=== PATIENT | male | born 1955 | race Caucasian/White ===

== ENCOUNTER 2019-10-10 13:24 | Outpatient (CLI) | payer OTHER, SELFPAY ==
[2019-10-10 14:05] LABS: Add Urine Microscopic? YES; Appearance Urine Cloudy (Clear); Bacteria Urine Trace /hpf; Bilirubin Urine Negative (Negative); Blood Urine 1+ (Negative); Color Urine Yellow (Yellow); Glucose Urine UA Negative (Negative); Ketones Urine Negative (Negative); Leukocyte Esterase Ur 3+ LEU/UL (Negative); Nitrate Urine Negative (Negative); Protein Urine 2+ mg/dL (Negative); Specific Grav Ur 1.018 (1.001-1.035); Transitional Epi Cells Urine Rare /hpf (None Seen); Urobilinogen Urine Negative mg/dL (<2.0); WBC Urine >75 /hpf
== END 2019-10-10 13:25 | disposition home or self-care (01) ==
PROVIDERS: PCP Internal Medicine; Visit Provider Internal Medicine
DX: R82.90 Unspecified abnormal findings in urine (principal)
CPT/HCPCS: 81001; 87077; 87086; 87088; 87491; 87591

== ENCOUNTER 2020-05-17 09:15 | Outpatient (CLI) | payer OTHER, SELFPAY ==
--- NOTE | ~2020-05-17 | XR_ITS ---
EXAMINATION: XR shoulder RT min 2V DATE: 05/17/2020 09:52 INDICATION: Other specific arthropathies, not elsewhere classified. TECHNIQUE: 5 views of right shoulder were obtained. COMPARISON: None. FINDINGS: Bone alignment is normal. No fracture. There is mild osteoarthritis of glenohumeral joint c haracterized by tiny marginal osteophytes. There is moderate osteoarthritis of acromioclavicular join t. There are suture anchors in the glenoid. IMPRESSION: 1. Polyarticular osteoarthritis. Reviewed, dictated and finalized at location A. ER CLEANER
--- NOTE | ~2020-05-17 | XR_ITS ---
EXAMINATION: XR_CERV2-3V_CR EXAM DATE: 05/17/2020 09:52 INDICATION: Radiculopathy, side unspecified. Cervical spondylosis. TECHNIQUE: Frontal, lateral, open-mouth odontoid projections cervical spine. There is no prior stud y for comparison. FINDINGS: There is moderate disc disease C5-C7. Mild loss of the C4-5 disc height. The vertebral bod y and disc heights are otherwise well maintained. The vertebral bodies are aligned in the AP dimensio n. There is moderate midcervical arthropathy, evidence of some amount of neural foraminal stenosis at C5-6 and C6-7. Prevertebral soft tissue and pre-dens space are within normal limits. The odontoid pr ocess is intact. The lateral masses of C1 line up with C2. There is carotid calcification, arterial sclerotic disease, with unknown amount of additional atheros clerotic disease. Consider correlating with carotid ultrasound. IMPRESSION: 1. Moderate cervical spondylosis. 2. Carotid arteriosclerosis; consider follow-up ultrasound if not recently evaluated. Reviewed, dictated and finalized at location B. FIELD MANAGER IMPRESSION: 1. Moderate cervical spondylosis. 2. Carotid arteriosclerosis; consider follow-up ultrasound if not recently abby saloni.
--- NOTE | ~2020-05-17 | XR_ITS ---
EXAMINATION: XR shoulder LT min 2V DATE: 05/17/2020 09:52 INDICATION: Other specific arthropathies not elsewhere classified. TECHNIQUE: 4 views of left shoulder were obtained. COMPARISON: None. FINDINGS: Bone alignment is normal. No fracture. Glenohumeral joint is normal. There is mild acromioc lavicular joint osteoarthritis. IMPRESSION: 1. Mild left acromioclavicular joint osteoarthritis. Reviewed, dictated and finalized at location A. T CONTROL OPERATOR
[2020-05-17 09:34] LABS: Basophils Absolute Auto 0.1 K/mm3 (0.0-0.1); Basophils Percent Auto 1.1 % (0.2-1.2); Eosinophils Absolute Auto 0.3 K/mm3 (0-0.3); Hematocrit 41.4 % (42.0-52.0); Immature Granulocyte Absolute 0.06 K/mm3 (0.00-0.031); Immature Granulocyte Percent A 0.8 % (0-0.5); Lymphocytes Absolute Auto 2.02 K/mm3 (0.9-3.2); Lymphocytes Percent Auto 28.5 % (18.3-44.2); Mean Corpuscular HGB Conc 33.8 g/dl (32-36); Mean Corpuscular Hemoglobin 30.9 pg (26-34); Mean Corpuscular Volume 91.4 fl (80-100); Mean Platelet Volume 9.8 fl (7.4-10.4); Monocytes Absolute Auto 0.6 K/mm3 (0.1-0.6); Monocytes Percent Auto 7.9 % (2.6-8.5); Neutrophils Absolute Auto 4.1 K/mm3 (1.3-6.7); Neutrophils Percent Auto 57.7 % (45.5-73.1); Platelet Count Result 237 k/mm3 (150-375); Red Blood Count 4.53 M/mm3 (4.6-6.20); Red Cell Distribution Width 12.7 % (11.5-14.5); White Blood Count 7.1 K/mm3 (4.5-10.0)
[2020-05-17 09:46] LABS: Alanine Aminotransferase 41 U/L (4-50); Albumin Level 4.1 g/dL (3.5-5.1); Alkaline Phosphatase 56 U/L (38-126); Anion Gap 5 mmol/L (8-16); Aspartate Amino Transferase 34 U/L (17-59); Bilirubin,Total 0.4 mg/dL (0.2-1.3); Blood Urea Nitrogen 22 mg/dL (9-20); Calcium 8.9 mg/dL (8.4-10.2); Carbon Dioxide 29 mmol/L (22-30); Chloride 105 mmol/L (98-107); Cholesterol 206 mg/dL (0-200); Estimated Glomerular Filt Rate > 60; Glucose 107 mg/dL (75-110); HDL Direct 37 mg/dL; Sodium 139 mmol/L (137-145); Triglycerides 78 mg/dL (<150)
[2020-05-17 09:57] LABS: LDL Cholesterol Direct 144 mg/dL
[2020-05-17 10:17] LABS: Prostate Specific Antigen 0.9 ng/mL (< OR = 4.0)
[2020-05-17 10:34] LABS: Vitamin D 25 Hydroxy 32.1 ng/mL
== END 2020-05-17 09:16 | disposition home or self-care (01) ==
LOC: ANHLAB 09:18
PROVIDERS: PCP Internal Medicine; Visit Provider Internal Medicine
DX: E55.9 Vitamin D deficiency, unspecified (principal); Z12.5 Encounter for screening for malignant neoplasm of prostate; E78.2 Mixed hyperlipidemia; M12.811 Other specific arthropathies, not elsewhere classified, right shoulder; M12.812 Other specific arthropathies, not elsewhere classified, left shoulder; M25.50 Pain in unspecified joint; M47.22 Other spondylosis with radiculopathy, cervical region; M19.011 Primary osteoarthritis, right shoulder; M19.012 Primary osteoarthritis, left shoulder
CPT/HCPCS: 36415; 72040; 73030; 80053; 80061; 82306; 84153; 84443; 85025; G0103

== ENCOUNTER 2020-05-28 10:19 | Outpatient (CLI) | payer OTHER, SELFPAY ==
--- NOTE | ~2020-05-28 | US_ITS ---
EXAMINATION: US carotid duplex BI DATE: 05/28/2020 11:04 INDICATION: Carotid artery atherosclerosis and stenosis. TECHNIQUE: Grayscale, color Doppler, and pulsed Doppler images of the cervical carotid arteries were obtained. The degree of vessel stenosis is placed in one of the following categories: normal, <50%, 5 0-69%, >=70% but less than near-occlusion, near-occlusion, or total occlusion. Note that percent sten osis relative to normal distal artery lumen diameter is indirectly measured from velocity measurement s as described by Ranjith, et al. Radiology 2003; 229:340-346. COMPARISON: 05/29/2004 FINDINGS: RIGHT: The right common carotid artery (CCA) peak systolic velocity (PSV) is 87 cm/s. The right internal car otid artery (ICA) PSV is 74 cm/s. The right ICA end-diastolic velocity (EDV) is 27 cm/s. The right IC A/CCA PSV ratio is 0.9. Grayscale and color Doppler images yield an estimate of <50% diameter reducti on from plaque in the ICA. The external carotid artery (ECA) PSV is 59 cm/s. There is antegrade flow in the right vertebral artery. LEFT: The left CCA PSV is 95 cm/s. The left ICA PSV is 68 cm/s. The left ICA EDV is 27 cm/s. The left ICA/C CA PSV ratio is 0.7. Grayscale and color Doppler images yield an estimate of <50% diameter reduction from plaque in the ICA. The ECA PSV is 73 cm/s. There is antegrade flow in the left vertebral artery. IMPRESSION: 1. <50% stenosis in the right internal carotid artery. 2. <50% stenosis in the left internal carotid artery. Reviewed, dictated and finalized at location A.
== END 2020-05-28 10:20 | disposition home or self-care (01) ==
PROVIDERS: PCP Internal Medicine; Visit Provider Internal Medicine
DX: I65.23 Occlusion and stenosis of bilateral carotid arteries (principal)
CPT/HCPCS: 93880

== ENCOUNTER 2020-06-27 16:01 | Outpatient (CLI) | payer OTHER, SELFPAY ==
--- NOTE | ~2020-06-27 | MR_ITS ---
EXAMINATION: MR shoulder LT wo/w con DATE: 06/28/2020 10:19 INDICATION: Right shoulder arthropathy TECHNIQUE/FINDINGS/IMPRESSION: Magnetic resonance imaging (MRI) of the right shoulder was attempted. At the patient's request the study was terminated after obtaining only the permastone applicator localizer images. No contrast was administered. The obtained permastone applicator images appear grossly unremarkable but are insufficien t for diagnostic assessment. Reviewed, dictated and finalized at location A.
[2020-06-27 16:27] LABS: Estimated Glomerular Filt Rate > 60
== END 2020-06-27 16:02 | disposition home or self-care (01) ==
PROVIDERS: PCP Internal Medicine; Visit Provider Internal Medicine
DX: M12.811 Other specific arthropathies, not elsewhere classified, right shoulder (principal)
CPT/HCPCS: 73223

== ENCOUNTER 2020-07-07 12:55 | Outpatient (CLI) | payer OTHER, SELFPAY ==
--- NOTE | ~2020-07-07 | MR_ITS ---
EXAMINATION: MR shoulder RT wo/w con DATE: 07/07/2020 14:44 INDICATION: Right rotator cuff arthropathy presenting with right shoulder pain TECHNIQUE: Magnetic resonance imaging (MRI) of the right shoulder was performed without and with 19 m L Multihance intravenous contrast. Sequences included axial PD-weighted FS FSE, axial T1-weighted FSE , axial T1-weighted FS FSE, coronal oblique PD-weighted FS FSE, coronal oblique T2-weighted FS FSE, s agittal T2-weighted FS FSE, sagittal T1-weighted SE and postcontrast axial and coronal T1-weighted FS FSE. COMPARISON: Right shoulder radiographs dated 05/17/2010 FINDINGS: Coracoacromial arch: The acromion undersurface is curved in morphology (type II). The coracoacromial ligament is normal. M oderate acromioclavicular osteoarthritis. Rotator cuff: Mild to supraspinatus and infraspinatus tendinopathy without discrete tear. The teres minor tendon is normal. Moderate subscapularis tendinopathy without discrete tear. There foci of susceptibility radha fact along the tendon near the level of the glenoid likely related to prior surgery. There appears to be mild fatty atrophy of the subscapularis muscle belly relative to the remainder of the rotator cuf f muscles. Biceps tendon, glenoid labrum and glenohumeral cartilage: The long head of the biceps tendon is torn and retracted below the level of the intertubercular groov e. Magnetic field artifact associated with a couple metallic suture anchors along the anteroinferior rim of the glenoid likely for prior labral repair. There is irregular degenerative tearing of the sup erior to posterior superior glenoid labrum. Region of deep chondral ulceration without degenerative s ubchondral changes at the superomedial aspect of the humeral head. Partial-thickness cartilage loss w ith smooth chondral surface along the inferomedial aspect of the humeral head and at the glenoid. Ass essment of the cartilage at the anteroinferior glenoid is however limited by the magnetic field artif act from the suture anchors. Fluid: Minimal glenohumeral joint effusion with mild synovitis and mild increased fluid in the deep subscapu lar recess additional mild synovitis at the axillary recess. No loose osteochondral bodies. Small iris unt of fluid in the subacromial/subdeltoid bursa consistent with mild bursitis. Bones: Normal marrow signal with no fracture or pathologic marrow replacing process. Mild cystic change thelma g the undersurface of the acromion. IMPRESSION: 1. Moderate subscapularis and mild to moderate supraspinatus and infraspinatus tendinopathy without discrete tear. Mild fatty atrophy of the subscapularis muscle with foci of susceptibility artifact al ivett the subscapularis tendon centered approximately 4 cm from the lesser tuberosity footplate related to prior shoulder surgery. Correlate with details of the prior surgery. 2. Mild glenohumeral osteoarthritis with moderate grade chondromalacia with deep chondral ulceration at the superomedial humeral head. 3. Degenerative tearing at the superior to posterior superior glenoid labrum with suture anchors thelma g the anteroinferior glenoid suggesting prior labral repair. 4. Complete tear and distal retraction of the long head biceps tendon. 5. Mild subacromial/subdeltoid bursitis. 6. Moderate acromioclavicular osteoarthritis. Reviewed, dictated and finalized at location A. IMPRESSION: 1. Moderate subscapularis and mild to moderate supraspinatus and infraspinatus tendinopathy without discrete tear. Mild fatty atrophy of the subscapularis mu scle with foci of susceptibility artifact along the subscapularis tendon center ed approximately 4 cm from the lesser tuberosity footplate related to prior pieter ulder surgery. Correlate with details of th
--- NOTE | ~2020-07-07 | MR_ITS ---
EXAMINATION: MR shoulder LT wo/w con DATE: 07/07/2020 14:44 INDICATION: Left rotator cuff arthropathy presenting with left shoulder pain. TECHNIQUE: Magnetic resonance imaging (MRI) of the left shoulder was performed without and with 19 mL Multihance intravenous contrast. Sequences included axial PD-weighted FS FSE, axial T1-weighted FSE, axial T1-weighted FS FSE, coronal oblique PD-weighted FS FSE, coronal oblique T2-weighted FS FSE, sa gittal T2-weighted FS FSE, sagittal T1-weighted SE and postcontrast axial and coronal T1-weighted FS FSE. COMPARISON: Left shoulder radiographs dated 05/17/2020 FINDINGS: Coracoacromial arch: The acromion undersurface is curved in morphology (type II). The coracoacromial ligament is normal. M ild acromioclavicular osteoarthritis. Rotator cuff: Moderate subscapularis tendinopathy with small partial-thickness tear involving the superolateral asp ect of the lesser tuberosity footplate allowing partial subluxation of the long head biceps tendon ac ross the superior medial rim of the intertubercular groove. Moderate supraspinatus tendinopathy with very small intrasubstance tear extending 2 mm AP and involving at least half of the tendon thickness but without definitive involvement of the articular bursal surfaces at the superior facet footplate o f the supraspinatus tendon. Mild infraspinatus tendinopathy without discrete tear. The teres minor te ndon is normal. Normal rotator cuff muscle bulk and signal. Biceps tendon, glenoid labrum and glenohumeral cartilage: Long head biceps tendon is normal aside from the partial subluxation of the long head biceps tendon a cross the superior medial rim of the lesser intertubercular groove. Likely Manuela complex with absent anterosuperior glenoid labrum and thickened cordlike middle glenohumeral ligament. There is also pro minent degenerative tearing of the anteroinferior labrum which appears thickened with amorphous incre ased intrasubstance signal extending from the 3:00-6:00 position. Additional more well-defined tear l inear tear extending into the substance of the superior to posterior superior glenoid labrum. There i s partial thickness cartilage loss without degenerative subchondral changes at the posterior superome dial aspect of the humeral head. Glenoid cartilage appears relatively preserved. Fluid: Minimal glenohumeral joint effusion surrounding a few loose bodies in the deep subscapular recess. Pr oportional small amount of fluid within the long head biceps tendon sheath. Small amount of fluid and enhancing synovitis in the subacromial/subdeltoid bursa consistent with mild bursitis. Bones: Normal marrow signal with no fracture or pathologic marrow replacing process. Minimal cystic change a t the greater tuberosity. IMPRESSION: 1. Moderate subscapularis with small partial tear at the superolateral lesser tuberosity footplate. 2. Moderate supraspinatus tendinopathy with very small moderate severity partial-thickness intrasubst ance tear at the superior facet footplate. 3. Tear at the superior to posterior superior glenoid labrum and less well-defined degenerative teari ng of the thickened macerated appearing anteroinferior to inferior labrum. 4. Mild glenohumeral and acromioclavicular osteoarthritis. 5. Mild subacromial/subdeltoid bursitis. Reviewed, dictated and finalized at location A. IMPRESSION: 1. Moderate subscapularis with small partial tear at the superolateral lesser t uberosity footplate. 2. Moderate supraspinatus tendinopathy with very small moderate severity partia l-thickness intrasubstance tear at the superior facet footplate. 3. Tear at the superior to posterior superior glenoid labrum and less well-defi suzanne degenerative tearing of the thickened macerated a
== END 2020-07-07 12:56 | disposition home or self-care (01) ==
PROVIDERS: PCP Internal Medicine; Visit Provider Internal Medicine
DX: M19.011 Primary osteoarthritis, right shoulder (principal); S43.431A Superior glenoid labrum lesion of right shoulder, initial encounter; S46.111A Strain of muscle, fascia and tendon of long head of biceps, right arm, initial encounter; M75.51 Bursitis of right shoulder; S43.432A Superior glenoid labrum lesion of left shoulder, initial encounter; M75.52 Bursitis of left shoulder; M75.102 Unspecified rotator cuff tear or rupture of left shoulder, not specified as traumatic; M19.012 Primary osteoarthritis, left shoulder
CPT/HCPCS: 73223; A9577

== ENCOUNTER → 2020-07-10 01:41 | Outpatient (CLI) | payer OTHER, SELFPAY ==
[2020-07-10 19:23] LABS: SARS-CoV-2 RNA PCR Negative
== END ==
PROVIDERS: PCP Internal Medicine; Visit Provider Internal Medicine Gastroenterology
DX: Z01.812 Encounter for preprocedural laboratory examination (principal); Z20.822 Contact with and (suspected) exposure to COVID-19
CPT/HCPCS: C9803; U0003; U0005

== ENCOUNTER 2020-07-13 01:52 | Day surgery (SDC) | payer OTHER, SELFPAY ==
[2020-07-04 13:41] VITALS: BMI 32.1
[2020-07-13 07:19] VITALS: BP 136/81; PULSE 62; RESP 16; TEMP 36.3; O2SAT 97; BMI 32.5
[2020-07-13] MEDS: LACTATED RINGERS 1,000 ML 150 ML IV CONT (07:34)
--- NOTE | 2020-07-13 08:03 | WPDANESEPPF ---
Anes - Initial Pre Proc Eval Procedure: Operation Date: 07/13/20 08:30 Proposed Procedures p Screening Colonoscopy - Fabio Benavidez MD Date/Time: 07/13/20 08:03 Surgeon: Fabio Benavidez MD Pre Op Diagnosis: neoplasm screening Patient Data Age: 64 Gender: M Height: 5 ft 8 in Weight: 97 kg Last Vital Signs Temp 36.3 C L 07/13/20 07:19 Pulse 62 07/13/20 07:19 Resp 16 07/13/20 07:19 BP 136/81 07/13/20 07:19 Pulse Ox 97 07/13/20 07:19 Allergies Allergy/AdvReac Type Severity Reaction Status Date / Time morphine Allergy Intermediate Itching Verified 07/13/20 07:18 Penicillins Allergy Intermediate Rash Verified 07/13/20 07:18 Home Medications Medication Instructions Recorded Confirmed Type rosuvastatin 5 mg tablet 5 mg PO DAILY #30 tablet 05/21/20 07/13/20 Rx hydrocodone-acetaminophen 1 tablet PO Q6H PRN 07/04/20 07/13/20 History Patient hx anesthesia problems: none Family hx anesthesia problems: none PMFSH Past Medical History Medical History Pure hypercholesterolemia Family History Family History Father Patient's father is in good health Sibling Patient's brother is in good health Mother Family history of diabetes mellitus in first degree relative Diabetes mellitus Asthma Family history of pancreatic cancer Grandparent Carcinoma of colon Social History Social History Smoking status: Never smoker Alcohol intake: current Alcohol use details: OCC. 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 Questions were solicited and answers provided to the satisfaction of the patient/family/POA.
--- NOTE | 2020-07-13 08:11 | PM.HPGS ---
History of Present Illness History of Present Illness Consent: Risks, benefits, and alternatives have been discussed and questions answered. Patient agrees to proceed with procedure. Chief complaint: neoplasm screening Narrative: Jaron Nicholson is a 64 year old male with screening colonoscopy, last one about 10 years Review of Systems Constitutional: Constitutional: Denies headache(s) and Denies weakness Eyes: Eyes: Denies blurry vision ENT: Reports Normal hearing present, Denies headache(s) and Denies neck pain Cardiovascular: Cardiovascular: Denies chest pain and Denies dyspnea Respiratory: Respiratory: Denies dyspnea Gastrointestinal: Gastrointestinal: Reports no additional gastrointestinal complaints Genitourinary: Genitourinary: Denies dysuria Musculoskeletal: Musculoskeletal: Denies neck pain Integumentary/Breasts: Skin/Breast: Denies dry skin Neurologic: Reports Normal hearing present, Denies headache(s) and Denies weakness Psychiatric: Psychiatric: Denies anxiety Endocrine: Endocrine: Denies change in body appearance Hematologic/Lymphatic: Hematologic/Lymphatic: Denies easy bleeding Allergic/Immunologic: Allergic/Immunologic: Denies urticaria PMFSH Past Medical History Medical History Pure hypercholesterolemia Family History Family History Father Patient's father is in good health Sibling Patient's brother is in good health Mother Family history of diabetes mellitus in first degree relative Diabetes mellitus Asthma Family history of pancreatic cancer Grandparent Carcinoma of colon Social History Social History Smoking status: Never smoker Alcohol intake: current Alcohol use details: OCC. 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 Gender identity (if verbalized by the patient): Male Spiritual care concerns: No Meds Home Medications and Allergies Home Medications Medication Instructions Recorded Confirmed Type rosuvastatin 5 mg tablet 5 mg PO DAILY #30 tablet 05/21/20 07/13/20 Rx hydrocodone-acetaminophen 1 tablet PO Q6H PRN 07/04/20 07/13/20 History Allergies Allergy/AdvReac Type Severity Reaction Status Date / Time morphine Allergy Intermediate Itching Verified 07/13/20 07:18 Penicillins Allergy Intermediate Rash Verified 07/13/20 07:18 Vital Signs Vital Signs - 24 hr 07/13/20 07:19 Temperature 97.4 F L Pulse Rate 62 Respiratory Rate 16 Blood Pressure 136/81 Pulse Oximetry 97 Exam Const: General: comfortable and no acute distress HENMT: General nose exam: Normal nares present Eyes: General: appearance normal, both eyes and all related structures Neck: Neck: no JVD Resp: Auscultation: clear to auscultation bilaterally Cardio: Rate: regular rate Rhythm: regular rhythm GI: Inspection: non-distended GI Palp: Yes Soft to palpation Skin: General skin exam: normal color Neuro: General: gait normal Speech: normal speech Extrem: General: normal to inspection Psych: Mental Status: mental status grossly normal Assessment and Plan Assessment and plan (1) Encounter for screening colonoscopy: Code(s): Z12.11 - Encounter for screening for malignant neoplasm of colon Status: Acute Assessment and Plan: colonoscopy
[2020-07-13 08:33] VITALS: BP 123/89; PULSE 72; RESP 22; O2SAT 92
[2020-07-13 08:43] VITALS: BP 135/83; PULSE 65; RESP 19; O2SAT 96
[2020-07-13 08:53] VITALS: BP 136/89; PULSE 66; RESP 16; O2SAT 100
== END 2020-07-13 09:00 | disposition home or self-care (01) ==
PROVIDERS: PCP Internal Medicine; Visit Provider Internal Medicine Gastroenterology
PROC: 0DJD8ZZ Inspection of Lower Intestinal Tract, Via Natural or Artificial Opening Endoscopic (ICD-10-PCS; CPT 45378; principal; 2020-07-13 08:30)
DX: Z12.11 Encounter for screening for malignant neoplasm of colon (principal); D12.5 Benign neoplasm of sigmoid colon; K63.5 Polyp of colon; K64.8 Other hemorrhoids; E78.00 Pure hypercholesterolemia, unspecified
CPT/HCPCS: 45385; 88305; J2704; J7120

== ENCOUNTER 2020-11-26 06:52 | Outpatient (CLI) | payer MEDICARE, OTHER, SELFPAY ==
[2020-11-26 07:47] LABS: Alanine Aminotransferase 36 U/L (4-50); Albumin Level 4.2 g/dL (3.5-5.1); Alkaline Phosphatase 53 U/L (38-126); Anion Gap 6 mmol/L (8-16); Aspartate Amino Transferase 29 U/L (17-59); Bilirubin,Total 0.4 mg/dL (0.2-1.3); Blood Urea Nitrogen 18 mg/dL (9-20); Calcium 9.1 mg/dL (8.4-10.2); Carbon Dioxide 30 mmol/L (22-30); Chloride 104 mmol/L (98-107); Cholesterol 222 mg/dL (0-200); Estimated Glomerular Filt Rate > 60; Glucose 109 mg/dL (65-110); HDL Direct 37 mg/dL; Potassium 3.9 mmol/L (3.4-5.0); Sodium 140 mmol/L (137-145); Triglycerides 121 mg/dL (<150)
[2020-11-26 07:58] LABS: LDL Cholesterol Direct 143 mg/dL
== END 2020-11-26 06:53 | disposition home or self-care (01) ==
LOC: ANHLAB 06:55
PROVIDERS: PCP Internal Medicine; Visit Provider Internal Medicine
DX: E78.2 Mixed hyperlipidemia (principal)
CPT/HCPCS: 36415; 80053; 80061

== ENCOUNTER 2021-06-10 07:03 | Outpatient (CLI) | payer MEDICARE, OTHER, SELFPAY ==
[2021-06-10 07:45] LABS: Basophils Absolute Auto 0.1 K/mm3 (0.0-0.1); Basophils Percent Auto 1.1 % (0.2-1.2); Eosinophils Absolute Auto 0.5 K/mm3 (0-0.3); Hematocrit 42.8 % (42.0-52.0); Hemoglobin 14.4 g/dL (14.0-18.0); Immature Granulocyte Absolute 0.04 K/mm3 (0.00-0.031); Immature Granulocyte Percent A 0.6 % (0-0.5); Lymphocytes Absolute Auto 2.05 K/mm3 (0.9-3.2); Lymphocytes Percent Auto 29.1 % (18.3-44.2); Mean Corpuscular HGB Conc 33.6 g/dl (32-36); Mean Corpuscular Hemoglobin 30.8 pg (26-34); Mean Corpuscular Volume 91.6 fl (80-100); Mean Platelet Volume 9.8 fl (7.4-10.4); Monocytes Absolute Auto 0.6 K/mm3 (0.1-0.6); Monocytes Percent Auto 8.2 % (2.6-8.5); Neutrophils Absolute Auto 3.8 K/mm3 (1.3-6.7); Platelet Count Result 239 k/mm3 (150-375); Red Blood Count 4.67 M/mm3 (4.6-6.20); Red Cell Distribution Width 12.9 % (11.5-14.5)
[2021-06-10 07:46] LABS: Alanine Aminotransferase 40 U/L (4-50); Albumin Level 4.1 g/dL (3.5-5.1); Alkaline Phosphatase 55 U/L (38-126); Anion Gap 7 mmol/L (8-16); Aspartate Amino Transferase 30 U/L (17-59); Bilirubin,Total 0.4 mg/dL (0.2-1.3); Blood Urea Nitrogen 32 mg/dL (9-20); Calcium 8.5 mg/dL (8.4-10.2); Carbon Dioxide 27 mmol/L (22-30); Chloride 106 mmol/L (98-107); Cholesterol 117 mg/dL (0-200); Estimated Glomerular Filt Rate > 60; Glucose 107 mg/dL (65-110); HDL Direct 35 mg/dL; Potassium 3.8 mmol/L (3.4-5.0); Sodium 140 mmol/L (137-145); Triglycerides 67 mg/dL (<150)
[2021-06-10 07:57] LABS: LDL Cholesterol Direct 60 mg/dL
[2021-06-10 08:15] LABS: Prostate Specific Antigen 0.8 ng/mL (< OR = 4.0)
== END 2021-06-10 07:04 | disposition home or self-care (01) ==
PROVIDERS: PCP Internal Medicine; Visit Provider Internal Medicine
DX: E55.9 Vitamin D deficiency, unspecified (principal); N40.1 Benign prostatic hyperplasia with lower urinary tract symptoms; R39.11 Hesitancy of micturition; F41.9 Anxiety disorder, unspecified; E78.00 Pure hypercholesterolemia, unspecified; N52.9 Male erectile dysfunction, unspecified; E78.2 Mixed hyperlipidemia; Z12.5 Encounter for screening for malignant neoplasm of prostate
CPT/HCPCS: 36415; 80053; 80061; 82306; 84153; 84443; 85025; G0103

== ENCOUNTER 2021-06-17 10:04 | Outpatient (CLI) | payer MEDICARE, OTHER, SELFPAY ==
--- NOTE | ~2021-06-17 | XR_ITS ---
EXAM: XR knee RT 3V HISTORY: stepped in hole , right knee pain COMPARISON: None available FINDINGS: Normal mineralization. No fracture or dislocation. No lytic or blastic lesion. Mild medial joint space narrowing and tricompartmental osteophytosis. No erosion or periosteal change. Soft tiss ues within normal limits. IMPRESSION: No acute osseous finding in the right knee. Reviewed, dictated and finalized at location K.
== END 2021-06-17 10:05 | disposition home or self-care (01) ==
PROVIDERS: PCP Internal Medicine; Visit Provider Internal Medicine
DX: S86.911A Strain of unspecified muscle(s) and tendon(s) at lower leg level, right leg, initial encounter (principal); X58.XXXA Exposure to other specified factors, initial encounter
CPT/HCPCS: 73562

== ENCOUNTER 2021-08-08 16:51 | Outpatient (CLI) | payer MEDICARE, OTHER, SELFPAY ==
--- NOTE | ~2021-08-08 | MR_ITS ---
EXAMINATION: MR knee RT wo con DATE: 08/08/2021 17:21 INDICATION: Right knee pain TECHNIQUE: Magnetic resonance imaging (MRI) of the right knee was performed without intravenous contr ast. Sequences included coronal PD-weighted FSE, coronal PD-weighted FS FSE, sagittal T2-weighted FS E, sagittal PD-weighted FS FSE and axial PD weighted fat saturated FSE. COMPARISON: None. FINDINGS: Medial compartment: Medial meniscal tear which begins as a longitudinal horizontal tear extending to the inferior articul ar surface near the free edge of the posterior horn and with more vertically oriented tear extending to the inferior articular surface and the peripheral third of the medial meniscal body. Chondral ulce ration with partial thickness cartilage loss and chondral surface irregularity along the anterior to central weightbearing medial femoral condyle. Additional partial thickness chondral ulceration at the anteromedial aspect of the medial tibial plateau with minimal underlying subarticular edema-like sig nal change. Lateral compartment: Lateral meniscus is normal. Articular cartilage is normal. Patellofemoral compartment: Partial-thickness chondral ulceration at the central aspect of the patellar apical ridge and immediat umer adjacent lateral aspect of the medial patellar facet. Chondral ulceration and deep fissuring at t he trochlear groove and medial trochlea. There is mild underlying cortical irregularity and minimal e andrez-like signal change at the inferior aspect of the medial trochlea. Less severe shallow chondral u lceration at the medial side of the lateral trochlea. Ligaments and tendons: Anterior and posterior cruciate ligaments are normal. Wall thickening of the proximal medial collater al ligament with minimal surrounding edema which most likely reactive related to the medial meniscal tear with chronic scarring of the proximal medial collateral ligament. Could however be related to a more acute mild to moderate grade sprain. The fibular collateral ligament complex is normal. The coates llar tendon is normal. Mild distal quadriceps tendinopathy without discrete tear. The visualized medi al and lateral hamstring tendons as well as the iliotibial band are normal. Fluid: Physiologic amount of fluid in the joint space. No loose osteochondral bodies identified. Small Smith 's cyst. Osseous/other: Mild cystic change near the posterior root of the medial meniscus. Marrow signal is otherwise normal. No fracture or pathologic marrow replacing process. IMPRESSION: 1. Tear of the body and posterior horn of the medial meniscus. 2. Mild medial and patellofemoral osteoarthritis with moderate grade chondromalacia as detailed above . 3. Age-indeterminate but more likely chronic low to moderate grade sprain of the medial collateral li gament. 4. Small Smith's cyst. Reviewed, dictated and finalized at location B. IMPRESSION: 1. Tear of the body and posterior horn of the medial meniscus. 2. Mild medial and patellofemoral osteoarthritis with moderate grade chondromal acia as detailed above. 3. Age-indeterminate but more likely chronic low to moderate grade sprain of th e medial collateral ligament. 4. Small Smith's cyst.
== END 2021-08-08 16:52 | disposition home or self-care (01) ==
PROVIDERS: PCP Internal Medicine; Visit Provider Nurse Practitioner Family
DX: M71.21 Synovial cyst of popliteal space [Baker], right knee (principal); M17.11 Unilateral primary osteoarthritis, right knee
CPT/HCPCS: 73721

== ENCOUNTER 2021-08-21 07:35 | Outpatient (CLI) | payer MEDICARE, OTHER, SELFPAY ==
--- NOTE | 2021-08-21 07:42 | ECG_ITS ---
Measurements Intervals [place] Rate: 59 P: 47 TX: 205 QRS: 41 QRSD: 109 T: 60 QT: 381 QTc: 380 Interpretive Statements SINUS BRADYCARDIA OTHERWISE NORMAL ECG NO PREVIOUS ECG AVAILABLE FOR COMPARISON Electronically Signed On 08-21-2021 10:31:57 CDT by Bandar Lopez M.D.
== END 2021-08-21 07:36 | disposition home or self-care (01) ==
LOC: ANHSURGERY 07:41
PROVIDERS: PCP Internal Medicine; Visit Provider Orthopaedic Surgery
DX: Z01.818 Encounter for other preprocedural examination (principal); S83.249A Other tear of medial meniscus, current injury, unspecified knee, initial encounter
CPT/HCPCS: 93005

== ENCOUNTER 2021-08-30 01:44 | Day surgery (SDC) | payer MEDICARE, OTHER, SELFPAY ==
[2021-08-19 09:41] VITALS: BMI 33.5
--- NOTE | 2021-08-19 09:54 | PC.NURSE ---
Report to the Outpatient Waiting Room, entrance under the green pavilion located off [facility], at time __7:00AM on date _08/30/21 . OR Time: _9:00AM . - You and your visitor will be asked a series of questions to screen for COVID 19 for your protection. - Only one visitor is allowed at this time. - The patient visitor is requested to leave or wait in car when not with patient. - A mask is required within the hospital. Patients may have clear liquids (water, carbonated beverages, clear teas, apple juice) until 3 hours prior to surgery with a maximum of 20 ounces. - No food from midnight until time of surgery - Infants may have breast milk until 4 hours before surgery, formula 6 hours prior to surgery. - Children will be allowed to drink immediately following surgery. If applicable, please bring a bottle or sippy cup to assist with drinking. Juice, water, soda, and popsicles are readily available. For infants on formula, please bring formula the day of surgery. Pacifiers are allowed. Take the following medications with a SIP of water the morning of surgery: __HYDROCODONE NEEDED FOR PAIN Medications to discontinue per physician ___NONE Date to take last dose Please no make-up, nail senegalese, hairspray, perfume, deodorant, or body powder the day of surgery. No jewelry (including any body piercings) or valuables the day of surgery, leave them at home. Please take a shower or bath the night before, or the morning of, surgery with an antibacterial soap. Wear comfortable, loose fitting clothing. Children are encouraged to wear pajamas. - Jewelry must be removed prior to entering the operating room. Rings and piercings that are not removed may be cut off. - The hospital will not accept responsibility for valuables. - Please leave all valuables, including medications, at home the day of surgery. If you are going home after surgery, a licensed steam train driver must drive you home. - NO public transportation without another adult. - We recommend that an adult stay with you for 24 hours following discharge. - We also recommend that you do not drive, make important decision, drink alcoholic beverages, or take any drugs that were not prescribed by your health care provider for at least 24 hours after your discharge time. For Pediatric surgeries, we recommend two adults accompany the child home (only one inside the building at this time). Follow any additional instructions given to you from your surgeon. If you or anyone in your household have experienced Covid symptoms in the past week, please notify your surgeon or the nurse liaison at the phone number below for possible testing. Telephone instructions given to ___PATIENT and asked if any additional questions and then verbalized understanding. Patient advised to call surgeon office or pre surgery nurse liaison [phone] if any additional questions.
[2021-08-30] VITALS (9 sets, daily range): BP systolic 120–158; BP diastolic 72–86; PULSE 52–80; RESP 14–20; TEMP 36.3–36.9; O2SAT 95–100
[2021-08-30] MEDS: CELECOXIB 200 MG CAPSULE PO (06:40)
[2021-08-30] MEDS: ACETAMINOPHEN 500 MG TABLET 1000 MG PO (06:40)
[2021-08-30] MEDS: LACTATED RINGERS 1,000 ML 30 ML IV CONT (06:50)
--- NOTE | 2021-08-30 07:06 | WPDANESEPPF ---
Anes - Initial Pre Proc Eval Procedure: Operation Date: 08/30/21 07:30 Proposed Procedures p Right Knee Arthroscopy - You Gustafson MD Date/Time: 08/30/21 07:06 Surgeon: You Gustafson MD Pre Op Diagnosis: Rt Knee Medial Meniscus Tear, Patient Data Age: 65 Gender: M Height: 1.73 m Weight: 100.2 kg Last Vital Signs Temp 36.9 C 08/30/21 06:45 Pulse 58 L 08/30/21 06:45 Resp 14 08/30/21 06:45 BP 158/85 H 08/30/21 06:45 Pulse Ox 97 08/30/21 06:45 O2 Del Method Room Air 08/30/21 06:45 Allergies Allergy/AdvReac Type Severity Reaction Status Date / Time morphine Allergy Intermediate Itching/ALEXA Verified 08/22/21 09:47 H Penicillins Allergy Intermediate RASH/ITCHIN Verified 08/22/21 09:47 G Home Medications Medication Instructions Recorded Confirmed Type sildenafil 100 mg tablet (Viagra) 100 mg PO DAILY PRN sexual 11/29/20 08/22/21 Rx activity #30 tabs rosuvastatin 20 mg tablet 20 mg PO DAILY #90 tabs 06/17/21 08/22/21 Rx hydrocodone 5 mg-acetaminophen 325 1 tablet PO DAILY PRN Pain 08/19/21 08/22/21 History mg tablet ibuprofen 800 mg tablet 800 mg PO TID PRN Pain 08/19/21 08/22/21 History Patient hx anesthesia problems: none Family hx anesthesia problems: none Results Review: All pre-operative results and documents have been reviewed as part of the pre-operative evaluation. [facility] Past Medical History Medical History Medial meniscus tear Pure hypercholesterolemia Right knee pain Surgical History Surgical History Status post total left knee replacement Family History Family History Father Patient's father is in good health Sibling Patient's brother is in good health Mother Family history of diabetes mellitus in first degree relative Diabetes mellitus Asthma Family history of pancreatic cancer Grandparent Carcinoma of colon Social History Social History Smoking status: Never smoker Second hand tobacco smoke exposure: Yes Alcohol intake: current Drinks per week: 6 Alcohol use details: OCC. 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 Informed Consent: The patient's anesthetic plan and its attendant risks and benefits were discussed with the patient/family/POA. Questions were solicited and answers provided to the satisfaction of the patient/family/POA.
--- NOTE | 2021-08-30 07:16 | WPDHPUPDATE1 ---
History and Physical Update Update Date/Time: 08/30/21 07:16 History and Physical has been reviewed, including an updated exam of the patient. There are NO changes in the patient's condition. Risks, benefits, and alternatives have been discussed and questions answered. Patient agrees to proceed with procedure.
[2021-08-30] MEDS: ceFAZolin 2 GM/D5W 50 ML 2 GM/50 ML BAG IVPB (07:18)
[2021-08-30] MEDS: BUPIVACAINE HCL 0.5% PF 30 ML VIAL INFILTRATE (07:40)
--- NOTE | 2021-08-30 08:56 | W.PM.PROC2 ---
Procedure Note - Detailed Date of Procedure 08/30/21 Pre-op Diagnosis Rt Knee Medial Meniscus Tear, Post-op Diagnosis Same Procedure Performed RIGHT KNEE SCOPE Surgeon You Gustafson MD Anesthesia General Description of Procedure PATIENT WAS TAKEN TO THE OR. RIGHT LEG WAS PREPPED AND DRAPED STERILE. TROCARS WERE PLACED IN THE USUAL FASHION. CAMERA WAS INTRODUCED. THERE WAS CHONDROMALACIA TO THE PATELLA FEMORAL JOINT. THERE WAS A LOT OF SYNOVITIS IN ALL COMPARTMENTS. THE MEDIAL COMPARTMENT SHOWED CHONDROMALACIA TO THE MEDIAL FEMORAL CONDYLE. A SHAVER WAS USED TO PREFORM A CHONDROPLASTY. THERE WAS A COMPLEX MEDIAL MENISCUS TEAR. THE TEAR WAS RESECTED WITH A BITER AND A SHAVER DOWN TO A SMOOTH BASE. ABOUT 30% OF THE MENISCUS WAS REMOVED. THE ACL WAS INTACT. THE LAT COMPARTMENT HAD NO CHONDROMALACIA AT THE LATERAL PLATEAU OR LATERAL FEMORAL CONDYLE. THE PATELLO FEMORAL JOINT UNDERWENT CHONDROPLASTY. THERE WAS GRADE 3 CHONDROMALACIA IN MOST OF THE TROCHLEA AND PART OF THE PATELLA. SYNOVECTOMY WAS PREFORMED IN THE SUPERIOR MEDIAL COMPARTMENT. THE WOUNDS WERE APPROXIMATED WITH 4.0 NYLON. STERILE DRESSING WAS APPLIED. PATIENT WAS EXTUBATED. Estimated Blood Loss -10.0 Complications No immediate complications Condition Stable Disposition PACU
--- NOTE | 2021-08-30 09:35 | SUR.PHASEII ---
0930 - spouse in room. ice pack to right knee. crutches in room. no c/o pain.
--- NOTE | 2021-08-30 09:51 | P.OP_ITS ---
Procedure Note - Detailed Date of Procedure 08/30/21 Pre-op Diagnosis Rt Knee Medial Meniscus Tear, Post-op Diagnosis Same Procedure Performed RIGHT KNEE SCOPE Surgeon You Gustafson MD Anesthesia General Description of Procedure PATIENT WAS TAKEN TO THE OR. RIGHT LEG WAS PREPPED AND DRAPED STERILE. TROCARS WERE PLACED IN THE USUAL FASHION. CAMERA WAS INTRODUCED. THERE WAS CHONDROMALACIA TO THE PATELLA FEMORAL JOINT. THERE WAS A LOT OF SYNOVITIS IN ALL COMPARTMENTS. THE MEDIAL COMPARTMENT SHOWED CHONDROMALACIA TO THE MEDIAL FEMORAL CONDYLE. A SHAVER WAS USED TO PREFORM A CHONDROPLASTY. THERE WAS A COMPLEX MEDIAL MENISCUS TEAR. THE TEAR WAS RESECTED WITH A BITER AND A SHAVER DOWN TO A SMOOTH BASE. ABOUT 20% OF THE MENISCUS WAS REMOVED. THE ACL WAS INTACT. THE LATERAL MENISCUS WAS TORN AT THE ANTERIOR HORN. THE TEAR WAS RESECTED. THE LAT COMPARTMENT HAD GRADE [address] AT THE LATERAL PL ATEAU. CHONDROPLASTY WAS PREFORMED. A SYNOVECTOMY WAS PREFORMED WELL. THE PATELLO FEMORAL JOINT UNDERWENT CHONDROPLASTY. THERE WAS GRADE 2 CHONDROMALACIA IN PART OF THE TROCHLEA AND PART OF THE PATELLA. SYNOVECTOMY WAS PREFORMED IN THE SUPERIOR MEDIAL COMPARTMENT. THE WOUNDS WERE APPROXIMATED WITH 4.0 NYLON. STERILE DRESSING WAS APPLIED. PATIENT WAS EXTUBATED. Estimated Blood Loss 5 Complications No immediate complications Condition Stable Disposition PACU
== END 2021-08-30 10:05 | disposition home or self-care (01) ==
PROVIDERS: PCP Internal Medicine; Visit Provider Orthopaedic Surgery
PROC: (CPT 29870; principal; 2021-08-30 07:30)
DX: S83.231A Complex tear of medial meniscus, current injury, right knee, initial encounter (principal); M22.41 Chondromalacia patellae, right knee; M65.861 Other synovitis and tenosynovitis, right lower leg; X50.0XXA Overexertion from strenuous movement or load, initial encounter; E78.00 Pure hypercholesterolemia, unspecified; E66.9 Obesity, unspecified; Z68.33 Body mass index [BMI] 33.0-33.9, adult
CPT/HCPCS: 29881; A9270; J0690; J1100; J2250; J2405; J2704; J3010; J7120

== ENCOUNTER 2022-12-08 06:58 | Outpatient (CLI) | payer MEDICARE, OTHER, SELFPAY ==
[2022-12-08 08:19] LABS: Cholesterol 124 mg/dL (0-200); HDL Direct 35 mg/dL; Triglycerides 68 mg/dL (<150)
[2022-12-08 08:21] LABS: Hematocrit 43.3 % (42.0-52.0); Hemoglobin 14.5 g/dL (14.0-18.0); Mean Corpuscular HGB Conc 33.5 g/dl (32-36); Mean Corpuscular Hemoglobin 30.5 pg (26-34); Mean Corpuscular Volume 91.2 fl (80-100); Mean Platelet Volume 10.2 fl (7.4-10.4); Platelet Count Result 217 k/mm3 (150-375); Red Blood Count 4.75 M/mm3 (4.6-6.20); Red Cell Distribution Width 12.3 % (11.5-14.5); White Blood Count 8.2 K/mm3 (4.5-10.0)
[2022-12-08 08:30] LABS: LDL Cholesterol Direct 73 mg/dL
[2022-12-08 09:09] LABS: Vitamin D 25 Hydroxy 34.4 ng/mL
[2022-12-08 16:24] LABS: Prostate Specific Antigen 5.2 ng/mL (< OR = 4.0)
== END 2022-12-08 06:59 | disposition home or self-care (01) ==
PROVIDERS: PCP Family Medicine; Visit Provider Nurse Practitioner Family
DX: E55.9 Vitamin D deficiency, unspecified (principal); E78.00 Pure hypercholesterolemia, unspecified; Z12.5 Encounter for screening for malignant neoplasm of prostate; Z13.29 Encounter for screening for other suspected endocrine disorder
CPT/HCPCS: 36415; 80061; 82306; 84153; 84443; 85027; G0103

== ENCOUNTER 2023-10-31 08:52 | Outpatient (CLI) | payer MEDICARE, OTHER, SELFPAY ==
[2023-10-31 10:36] LABS: Alanine Aminotransferase 27 U/L (6-50); Alkaline Phosphatase 49 U/L (38-126); Anion Gap 6 mmol/L (4-12); Aspartate Amino Transferase 23 U/L (17-59); Bilirubin,Total 0.3 mg/dL (0.2-1.3); Blood Urea Nitrogen 17 mg/dL (9-20); Calcium 8.8 mg/dL (8.4-10.2); Carbon Dioxide 31 mmol/L (22-30); Chloride 101 mmol/L (98-107); Cholesterol 197 mg/dL (0-200); Estimated Glomerular Filt Rate > 60; Glucose 101 mg/dL (65-110); HDL Direct 41 mg/dL; Potassium 3.9 mmol/L (3.4-5.0); Sodium 138 mmol/L (137-145); Triglycerides 70 mg/dL (<150)
[2023-10-31 10:42] LABS: Hematocrit 42.9 % (42.0-52.0); Hemoglobin 14.4 g/dL (14.0-18.0); Mean Corpuscular HGB Conc 33.6 g/dl (32-36); Mean Corpuscular Hemoglobin 30.9 pg (26-34); Mean Corpuscular Volume 92.1 fl (80-100); Platelet Count Result 237 k/mm3 (150-375); Red Blood Count 4.66 M/mm3 (4.6-6.20); Red Cell Distribution Width 13.2 % (11.5-14.5); White Blood Count 8.5 K/mm3 (4.5-10.0)
[2023-10-31 10:48] LABS: LDL Cholesterol Direct 141 mg/dL
[2023-10-31 10:52] LABS: Vitamin D 25 Hydroxy 23.9 ng/mL
[2023-10-31 10:57] LABS: Hemoglobin A1C 5.9 % (<5.7)
[2023-10-31 11:08] LABS: Prostate Specific Antigen 0.9 ng/mL (< OR = 4.0); Thyroid Stimulating Hormone 0.962 uIU/mL (0.465-4.680)
== END 2023-10-31 08:53 | disposition home or self-care (01) ==
LOC: ANHLAB 08:59
PROVIDERS: PCP Family Medicine; Visit Provider Nurse Practitioner Family
DX: R73.09 Other abnormal glucose (principal); E55.9 Vitamin D deficiency, unspecified; Z12.5 Encounter for screening for malignant neoplasm of prostate; R97.20 Elevated prostate specific antigen [PSA]; E78.5 Hyperlipidemia, unspecified; E78.00 Pure hypercholesterolemia, unspecified
CPT/HCPCS: 36415; 80053; 80061; 82306; 83036; 84153; 84443; 85027

== ENCOUNTER 2024-07-27 06:54 | Outpatient (CLI) | payer MEDICARE, OTHER, SELFPAY ==
[2024-07-27 08:11] LABS: Prostate Specific Antigen 4.2 ng/mL (< OR = 4.0)
== END 2024-07-27 06:55 | disposition home or self-care (01) ==
PROVIDERS: PCP Family Medicine; Visit Provider Urology
DX: R97.20 Elevated prostate specific antigen [PSA] (principal)
CPT/HCPCS: 36415; 84153

== ENCOUNTER 2024-09-16 10:43 | Outpatient (CLI) | payer MEDICARE, OTHER, SELFPAY ==
--- OUTSIDE RECORDS SUMMARY | 2024-09-16 10:51 | XMS_ITS | Clinical Summary ---
Author Organization [facility] Address [facility] [place] [address] Care Team Providers Care Computer Technologist Name Role Phone Kings Tolentino MD Primary Care Provider [phone] Allergies Active Allergy Reactions Criticality Noted Date Comments Amoxicillin Rash Low 04/27/2023 Morphine Rash Low 04/27/2023 Penicillin V Rash Low 04/27/2023 Penicillins Rash Low 04/27/2023 Shellfish-Derived Products Vomiting Medications rosuvastatin (CRESTOR) 20 MG tablet Take 1 tablet (20 mg total) by mouth nightly at bedtime. Active solifenacin (VESICARE) 5 MG tablet Take 2 tablets (10 mg total) by mouth daily. For bladder spasms 60 tablet 05/04/2023 Active Family History Medical History Relation Comments Pancreas Disease Mother paralyzed from tumor removal on pancreas Relation Status Comments Father Alive Mother Social History Tobacco Use Types Packs/Day Years Used Date Smoking Tobacco: Never Smokeless Tobacco: Never Tobacco Cessation:Counseling Given: Not Answered Alcohol Use Standard Drinks/Week Comments Yes 0 (1 standard drink = 0.6 oz pure alcohol) occasional. special occasions or out for basketball game Sex and Gender Information Value Date Recorded Sex Assigned at Not on file Legal Sex Male 3:08 PM TOP STOP ATTACHER Gender Identity Not on file Sexual Orientation Not on file Last Filed Vital Signs Vital Sign Reading Time Taken Comments Blood Pressure 148/88 05/04/2023 2:10 PM TOP STOP ATTACHER Pulse 58 05/04/2023 2:10 PM TOP STOP ATTACHER Temperature 36.4 C (97.5 F) 05/04/2023 2:10 PM TOP STOP ATTACHER Respiratory Rate 16 05/04/2023 2:10 PM TOP STOP ATTACHER Oxygen Saturation 98% 05/04/2023 2:10 PM TOP STOP ATTACHER Inhaled Oxygen Concentration - - Weight 101.5 kg (223 lb 12.3 oz) 2023 10:35 AM TOP STOP ATTACHER Height 172.7 cm (5' 8) 05/04/2023 10:3 5 AM TOP STOP ATTACHER Body Mass Index 34.02 05/04/2023 10:35 AM TOP STOP ATTACHER Plan of Treatment Health Maintenance Due Date Last Done Comments Colorectal Cancer Screening Colonoscopy (10 Years) 1955 Hepatitis C 10/06/1973 Zoster Vaccines (2 of 2) 06/23/2017 04/28/2017 Annual Medicare Wellness Visit 10/06/2020 COVID-19 Vaccine ( season) 2023 03/03/2022, 07/17/2021, 12/21/2020, Additional history exists DTaP, Tdap and Td Vaccines (3 - Td or Tdap) 04/28/2027 04/28/2017, 2002, 01/06/1997 RSV Immunization or 60+ Years (1 - 1-dose 75+ series) 10/06/2030 Pneumococcal Vaccine: 50+ Years Completed 06/03/2021 Meningococcal B Vaccine Aged Out No l onger eligible based on patient's age to complete this topic Meningococcal Vaccine Aged Out No tyrone fito eligible based on patient's age to complete this topic RSV Immunizations Under 20 Months Aged Out No longer eligible based on patient's age to complete this topic Insurance MEDICARE [facility] Care Teams Computer Technologist Relationship Specialty Start Date End Date Kings Tolentino MD [address] [address] PCP - General FAMILY PRACTICE 04/30/23
--- OUTSIDE RECORDS SUMMARY | 2024-09-16 10:51 | XMS_ITS | Clinical Summary ---
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 Meniere's disease 03/31 Dizziness 01/22/2016 Overview (06/13/2016): Dizziness Surgical History Surgery Date Site/Laterality Comments KNEE ARTHROPLASTY Knee replacement CATARACT EXTRACTION Cataract Surgery - (Added by Conv) KNEE SURGERY Knee Surgery - (Added by Conv) SHOULDER SURGERY Shoulder Surgery - (Added by Conv) Medical History Medical History Date Comments History of shoulder surgery Hist ory of shoulder surgery; Comments: NB 01/22/2016 -Right shoulder Cataract of both eyes Bilateral cataracts Family History Medical History Relation Name Comments Asthma Mother Family history of asthma - (Added by TW Conv) Diabetes Mother Family history of diabetes mellitus - (Added by Conv) Relation Name Status Comments Mother Social History Tobacco Use Types Packs/Day Years Used Date Smoking Tobacco: Never Alcohol Use Standard Drinks/Week Comments Yes 0 (1 standard drink = 0.6 oz pur e alcohol) Personal Safety Answer Date Recorded Getting School Help Needed Not on file 05/22 Sex and Gender Information Value Date Recorded Sex Assigned at Not on file Legal Sex Male 12:54 AM SIDE HEMMER Gender Identity Not on file Sexual Orientation Not on file Obstetrics History Last Filed Vital Signs Vital Sign Reading Time Taken Comments Blood Pressure 130/80 03/31/2016 2:42 PM SIDE HEMMER Pulse 58 03/31/2016 2:42 PM SIDE HEMMER Temperature 36.6 C (97.9 F) 03/03/2013 2:54 PM SIDE HEMMER Respiratory Rate - - Oxygen Saturation 96% 03/03/2013 2:54 PM SIDE HEMMER Inhaled Oxygen Concentration - - Weight 95.3 kg (210 lb 0.2 oz) 03/31/2016 2:42 P M SIDE HEMMER Height 172.7 cm (5' 8) 03/31/2016 2:42 PM SIDE HEMMER Body Mass Index 31.93 03/31/2016 2:42 PM SIDE HEMMER Plan of Treatment Not on file Insurance [facility] CLAIMS Care Teams Cyber Security Administrator Relationship Specialty Start Date End Date Jean Shahid MD [address] [facility] [address] [place] [address] PCP - General Internal Medicine 04/27/18
--- OUTSIDE RECORDS SUMMARY | 2024-09-16 10:51 | XMS_ITS | Encounter Summary ---
Author Organization [facility] Address [address] [place] [address] Care Team Providers Care Director Geothermal Operations Name Role Phone Kings Tolentino MD Primary Care Provider [phone] Encounter Details Date Type Department Care Team (Late st Contact Info) Description 05/04/2023 Prep for Procedure [facility] Pre-Admission Testing [address] [place] [id number] Tommy Card MD 3 [facility] [place], [place] [id number] Social History Tobacco Use Types Packs/Day Years Used Date Smoking Tobacco: Never Smokeless Tobacco: Never Alcohol Use Standard Drinks/Week Comments Yes 0 (1 standard drink = 0.6 oz pure alcohol) occasional. special occasions or out for basketball game Sex and Gender Information Value Date Recorded Sex Assigned at Not on file Legal Sex Male 3:08 PM MAINSPRING WINDER Gender Identity Not on file Sexual Orientation Not on file documented as of this encounter Functional Status * Calculated C-SSRS Risk Score (Lifetime/Recent) Answer Date of Assessment Author Status No Risk Indicated 05/04/2023 10:45 AM Sandeep Islas RN Active * [place] Suicide Severity Rating Scale (Screener/Recent Self-Report) Question Answer Date of Assessment Author Status 1. Wish to be (Past 1 Month) No 05/04/2023 10:45 AM Eboni Islas RN A ctive 2. Non-Specific Active Suicidal Thoughts (Past 1 Month) No 05/04/2023 10:45 AM MAINSPRING WINDER Eboni Ramsay RN A ctive 6. Suicidal Behavior (Lifetime) No 05/04/2023 10:45 AM MAINSPRING WINDER Eboni Ramsay RN A ctive documented as of this encounter Plan of Treatment Not on file documented as of this encounter Results * TYPE & SCREEN (04/30/2023 8:48 AM MAINSPRING WINDER) ABO/RH A POSITIVE 04/30/2023 9:51 AM MAINSPRING WINDER [facility] ANTIBODY SCREEN NEGATIVE 04/30/2023 9:51 AM [facility] SAMPLE EXPIRATION 05/07/2023,2 359 05/04/2023 11:22 AM [facility] BB COMMENT NO HISTORY OF TRANSFUSIONS , OR ANTIBODIES, NEW SPECIMEN NOT NEEDED 05/04/2023 11:22 AM [facility] 04/30/2023 8:48 AM MAINSPRING WINDER Tommy Card MD BLOOD BANK TEST ORDERABLES Final Result [facility] [address] [place] [address], * (ABNORMAL) BASIC METABOLIC PANEL (04/30/2023 8:48 AM MAINSPRING WINDER) GLUCOSE 137(H) 70 - 99 MG/DL 04/30/2023 9:57 AM MAINSPRING WINDER [facility] BUN 20(H) 7 - 18 MG/DL 04/30/2023 9:57 AM [facility] CREATININE S/P/B 0.97 0.7 - 1.3 MG/DL 04/30/2023 9:57 AM [facility] SODIUM S/P/B 142 136 - 145 MMOL/L 04/30/2023 9:57 AM MAINSPRING WINDER [facility] POTASSIUM S/P/B 3.5 3.5 - 5.1 MMOL/L 04/30/2023 9:57 AM MAINSPRING WINDER [facility] CHLORIDE S/P/B 108 100 - 108 MMOL/L 04/30/2023 9:57 AM [facility] CO2 27.6 21 - 32 MMOL/L 04/30/2023 9:57 AM [facility] CALCIUM S/P/B 8.9 8.5 - 10.1 MG/DL 04/30/2023 9:57 AM [facility] ANION GAP 6.4 5 - 15 MMOL/L 04/30/2023 9:57 AM [facility] BUN CREATININE RATIO 20.7 6 - 26 04/30/2023 9:57 AM [facility] GFR ESTIMATE 86(L) >90 ML/MIN/1.7 3 M2 04/30/2023 9:57 AM [facility] Comment: NOTE: eGFR is not calculated for patients <18 years of age. This is an estimated GFR calculation using the new CKD EPI creatinine equation without race and so does not require a correction factor for race. This estimated GFR should not be used for calculating drug doses. 04/30/2023 8:48 AM MAINSPRING WINDER Tommy Card MD LABORATORY Final Result [facility] [address] [place] [address], [place] [phone] * CBC W/DIFF AUTOMATED (04/30/2023 8:48 AM MAINSPRING WINDER) WBC 8.1 4.5 - 11.0 x10'3/uL 04/30/2023 8:58 AM MAINSPRING WINDER [facility] RBC 4.74 4.70 - 6.10 x10'6/uL 04/30/2023 8:58 AM [facility] HGB 14.6 14.0 - 18.0 G/DL 04/30/2023 8:58 AM [facility] HCT 43.8 43.0 - 54.0 % 04/30/2023 8:58 AM [facility] MCV 92.4 80.0 - 94.0 FL 04/30/2023 8:58 AM [facility] MCH 30.8 27.0 - 31.0 PG 04/30/2023 8:58 AM [facility] MCHC 33.3 32.0 - 36.0 G/DL 04/30/2023 8:58 AM [facility] RDW 12.9 11.5 - 14.5 % 04/30/2023 8:58 AM [facility] PLT 227 130 - 400 x10'3/uL 04/30/2023 8:58 AM [facility] MPV 9.8 9.3 - 12.2 FL 04/30/2023 8:58 AM [facility] DIFFERENTIAL TYPE AUTOMATED DIFFERENTIAL 04/30/2023 8:58 AM [facility] NEUTROPHILS % 61.7 % 04/30/2023 8:58 AM [facility] LYMPHOCYTES % 24.7 % 04/30/2023 8:58 AM [facility] MONOCYTES % 5.9 % 04/30/2023 8:58 AM [facility] EOSINOPHILS 5.7 % 04/30/2023 8:58 AM [facility] BASOPHILS 1.0 % 04/30/2023 8:58 AM [facility] IMMATURE GRANS % 1.0 % 02/22/20 24 8:58 AM MAINSPRING WINDER [facility] ABS. NEUTROPHILS TOTAL 5.00 1.80 - 7.70 x10'3/uL 04/30/2023 8:58 AM MAINSPRING WINDER [facility] ABS. LYMPHOCYTES 2.00 1.00 - 4.80 x10'3/uL 04/30/2023 8:58 AM MAINSPRING WINDER [facility] ABS. MONOCYTES 0.48 0.30 - 0.82 x10'3/uL 04/30/2023 8:58 AM MAINSPRING WINDER [facility] ABS. EOSINOPHILS 0.46 0.04 - 0.54 x10'3/uL 04/30/2023 8:58 AM MAINSPRING WINDER [facility] ABS. BASOPHILS 0.08 0.01 - 0.08 x10'3/uL 04/30/2023 8:58 AM MAINSPRING WINDER [facility] ABS. IMMATURE GRANULOCYTES 0.08 0.00 - 0.49 x10'3/uL 04/30/2023 8:58 AM [facility] 04/30/2023 8:48 AM MAINSPRING WINDER Tommy Card MD LABORATORY Final Result [facility] [address] [place] [address], documented in this encounter Visit Diagnoses Diagnosis Enlarged prostate with lower urinary tract symptoms (LUTS)- Primary Hypertrophy of prostate with urinary obstruction and other lower urinary tract symptoms (LUTS) Increased frequency of micturition Urinary frequency PSA elevation Elevated prostate specific antigen (PSA) documented in this encounter Care Teams Director Geothermal Operations Relationship Specialty Start Date End Date Kings Tolentino MD [address] [place] [address] PCP - General FAMILY PRACTICE 04/30/23 documented as of this encounter
--- OUTSIDE RECORDS SUMMARY | 2024-09-16 10:51 | XMS_ITS | Referral Summary ---
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 Meniere's disease 03/31 Dizziness 01/22/2016 Overview (06/13/2016): Dizziness Social History Tobacco Use Types Packs/Day Years Used Date Smoking Tobacco: Never Alcohol Use Standard Drinks/Week Comments Yes 0 (1 standard drink = 0.6 oz pur e alcohol) Personal Safety Answer Date Recorded Getting School Help Needed Not on file 05/22 Sex and Gender Information Value Date Recorded Sex Assigned at Not on file Legal Sex Male 12:54 AM DIESEL ENGINE TESTER Gender Identity Not on file Sexual Orientation Not on file Last Filed Vital Signs Vital Sign Reading Time Taken Comments Blood Pressure 130/80 03/31/2016 2:42 PM DIESEL ENGINE TESTER Pulse 58 03/31/2016 2:42 PM DIESEL ENGINE TESTER Temperature 36.6 C (97.9 F) 03/03/2013 2:54 PM DIESEL ENGINE TESTER Respiratory Rate - - Oxygen Saturation 96% 03/03/2013 2:54 PM DIESEL ENGINE TESTER Inhaled Oxygen Concentration - - Weight 95.3 kg (210 lb 0.2 oz) 03/31/2016 2:42 P M DIESEL ENGINE TESTER Height 172.7 cm (5' 8) 03/31/2016 2:42 PM DIESEL ENGINE TESTER Body Mass Index 31.93 03/31/2016 2:42 PM DIESEL ENGINE TESTER Plan of Treatment Not on file Insurance [facility] CLAIMS Care Teams Senior Managing Director Relationship Specialty Start Date End Date Jean Shahid MD [address] [place] [address] PCP - General Internal Medicine 04/27/18
[2024-09-16 12:19] LABS: Prostate Specific Antigen 1.5 ng/mL (< OR = 4.0)
== END 2024-09-16 10:44 | disposition home or self-care (01) ==
PROVIDERS: PCP Family Medicine; Visit Provider Urology
DX: R97.20 Elevated prostate specific antigen [PSA] (principal)
CPT/HCPCS: 36415; 84153

== ENCOUNTER 2024-11-21 07:52 | Outpatient (CLI) | payer MEDICARE, OTHER, SELFPAY ==
--- OUTSIDE RECORDS SUMMARY | 2004-06-10 09:00 | XMS_ITS | Continuity of Care Document ---
Author Organization [facility] Address [address] [place] [address] [place] [address] Phone Care Team Providers Care Quality Assurance Supervisor Body Name Role Phone Tin Abel Unavailable Unavailable Advance Directives Directive Yes / No Effective Date File Name No Information Encounters Encounter Description Practice Location Reason(s) For Visit Diagnoses Date Provider Providers Copied on Encounter [facility], [id number] [place] [address] [address], [place], [place], [id number], [place] tel:[phone] [facility] No Information Page [address]. [address] [place], [place], [facility], [place]. tel:[phone] Referring Provider: Mai Cardoso, [facility], [place], [facility]. tel:[phone] Family History Family Member Type Diagnosis Age At Onset No Information Payers Payer name Insurance type Covered libertarian ID Authoriza tiarnlo(s) [employer] SOI CI [id number] Social History Type Description Quantity Date Captured Comments Sex Male Smoking Status No Information Chief Complaint And Reason For Visit No Information Reason For Referral Reason For Referral No Information History Of Present Illness Encounter Date Complaint History Of Prese nt Illness No Information Functional Status Date Functional Assessmen t No Information Instructions Date Instruction Additional Infor mation No Information Assessments Type Assessment Date No Information Patient Care Teams Name Effective Dates (start - stop) Status Members No Information
--- OUTSIDE RECORDS SUMMARY | 2024-11-21 08:18 | XMS_ITS | Clinical Summary ---
Author Organization [facility] Address [address] [place] [address] Care Team Providers Care Cook Tortilla Name Role Phone Kings Tolentino MD Primary Care Provider [phone] Allergies Active Allergy Reactions Criticality Noted Date [...] on file Legal Sex Male 3:08 PM LOCKSTITCH SLEEVE SETTER Gender Identity Not on file Sexual Orientation Not on file Last Filed Vital Signs Vital Sign Reading Time Taken Comments Blood Pressure 148/88 05/04/2023 2:10 PM LOCKSTITCH SLEEVE SETTER Pulse 58 05/04/2023 2:10 PM LOCKSTITCH SLEEVE SETTER Temperature 36.4 C (97.5 F) 05/04/2023 2:10 PM LOCKSTITCH SLEEVE SETTER Respiratory Rate 16 05/04/2023 2:10 PM LOCKSTITCH SLEEVE SETTER Oxygen Saturation 98% 05/04/2023 2:10 PM LOCKSTITCH SLEEVE SETTER Inhaled Oxygen Concentration - - Weight 101.5 kg (223 lb 12.3 oz) 2023 10:35 AM LOCKSTITCH SLEEVE SETTER Height 172.7 cm (5' 8) 05/04/2023 10:3 5 AM LOCKSTITCH SLEEVE SETTER Body Mass Index 34.02 05/04/2023 10:35 AM LOCKSTITCH SLEEVE SETTER Plan of Treatment Health Maintenance Due Date Last Done Comments Colorectal Cancer Screening Colonoscopy (10 Years) 1955 Hepatitis C 10/06/1973 Zoster Vaccines (2 of 2) 06/23/2017 04/28/2017 Annual Medicare Wellness Visit 10/06/2020 COVID-19 Vaccine ( season) 2024 03/03/2022, 07/17/2021, 12/21/2020, Additional history exists DTaP, [...] age to complete this topic Insurance MEDICARE [facility] Care Teams Cook Tortilla Relationship Specialty Start Date End Date Kings Tolentino MD [address] [address] PCP - General FAMILY PRACTICE 04/30/23
--- OUTSIDE RECORDS SUMMARY | 2024-11-21 08:18 | XMS_ITS | Clinical Summary ---
Author Organization [facility] Address [address] [facility] [address] [place] [address] Care Team Providers Care Learning Support Resource Room Teacher Name Role Phone Jean Shahid MD Primary Care Provider [phone] Allergies Active Allergy Reactions Criticality Noted Date [...] on file Legal Sex Male 12:54 AM PILLOWCASE SEWER Gender Identity Not on file Sexual Orientation Not on file Obstetrics History Last Filed Vital Signs Vital Sign Reading Time Taken Comments Blood Pressure 130/80 03/31/2016 2:42 PM PILLOWCASE SEWER Pulse 58 03/31/2016 2:42 PM PILLOWCASE SEWER Temperature 36.6 C (97.9 F) 03/03/2013 2:54 PM PILLOWCASE SEWER Respiratory Rate - - Oxygen Saturation 96% 03/03/2013 2:54 PM PILLOWCASE SEWER Inhaled Oxygen Concentration - - Weight 95.3 kg (210 lb 0.2 oz) 03/31/2016 2:42 P M PILLOWCASE SEWER Height 172.7 cm (5' 8) 03/31/2016 2:42 PM PILLOWCASE SEWER Body Mass Index 31.93 03/31/2016 2:42 PM PILLOWCASE SEWER Plan of Treatment Not on file Insurance [facility] CLAIMS Care Teams Learning Support Resource Room Teacher Relationship Specialty Start Date End Date Jean Shahid MD [address] [facility] [address] [place] [address] PCP - General Internal Medicine 04/27/18
--- OUTSIDE RECORDS SUMMARY | 2024-11-21 08:18 | XMS_ITS | Encounter Summary ---
Author Organization [facility] Address [address] [place] [address] Care Team Providers Care Package Car Driver Name Role Phone Kings Tolentino MD Primary Care Provider [phone] Encounter Details Date Type Department Care Team (Late st Contact Info) Description 05/04/2023 Prep for Procedure [facility] Pre-Admission Testing [address] [place] [id number] Tommy Card MD 3 [facility] [address] [place], [place] [phone] Social History Tobacco Use Types Packs/Day Years Used Date Smoking Tobacco: Never Smokeless Tobacco: Never Alcohol Use Standard Drinks/Week Comments Yes 0 (1 standard drink = 0.6 oz pure alcohol) occasional. special occasions or out for basketball game Sex and Gender Information Value Date Recorded Sex Assigned at Not on file Legal Sex Male 3:08 PM CLINICAL OUTCOMES MANAGER Gender Identity Not on file Sexual Orientation Not on file documented as of this encounter Functional Status * Calculated C-SSRS Risk Score (Lifetime/Recent) Answer Date of Assessment Author Status No Risk Indicated 05/04/2023 10:45 AM Sandeep Islas RN Active * [place] Suicide Severity Rating Scale (Screener/Recent Self-Report) Question Answer Date of Assessment Author Status 1. Wish to be (Past 1 Month) No 05/04/2023 10:45 AM Eboni Islas RN A ctive 2. Non-Specific Active Suicidal Thoughts (Past 1 Month) No 05/04/2023 10:45 AM CLINICAL OUTCOMES MANAGER Eboni Ramsay RN A ctive 6. Suicidal Behavior (Lifetime) No 05/04/2023 10:45 AM CLINICAL OUTCOMES MANAGER Eboni Ramsay RN A ctive documented as of this encounter Plan of Treatment Not on file documented as of this encounter Results * TYPE & SCREEN (04/30/2023 8:48 AM CLINICAL OUTCOMES MANAGER) ABO/RH A POSITIVE 04/30/2023 9:51 AM CLINICAL OUTCOMES MANAGER [facility] ANTIBODY SCREEN NEGATIVE 04/30/2023 9:51 AM [facility] SAMPLE EXPIRATION 05/07/2023,2 359 05/04/2023 11:22 AM [facility] BB COMMENT NO HISTORY OF TRANSFUSIONS , OR ANTIBODIES, NEW SPECIMEN NOT NEEDED 05/04/2023 11:22 AM [facility] 04/30/2023 8:48 AM CLINICAL OUTCOMES MANAGER Tommy Card MD BLOOD BANK TEST ORDERABLES Final Result [facility] [address] [place] [address], * (ABNORMAL) BASIC METABOLIC PANEL (04/30/2023 8:48 AM CLINICAL OUTCOMES MANAGER) GLUCOSE 137(H) 70 - 99 MG/DL 04/30/2023 9:57 AM CLINICAL OUTCOMES MANAGER [facility] BUN 20(H) 7 - 18 MG/DL 04/30/2023 9:57 AM [facility] CREATININE S/P/B 0.97 0.7 - 1.3 MG/DL 04/30/2023 9:57 AM [facility] SODIUM S/P/B 142 136 - 145 MMOL/L 04/30/2023 9:57 AM CLINICAL OUTCOMES MANAGER [facility] POTASSIUM S/P/B 3.5 3.5 - 5.1 MMOL/L 04/30/2023 9:57 AM CLINICAL OUTCOMES MANAGER [facility] CHLORIDE S/P/B 108 100 - 108 MMOL/L 04/30/2023 9:57 AM [facility] CO2 27.6 21 - 32 MMOL/L 04/30/2023 9:57 AM [facility] CALCIUM S/P/B 8.9 8.5 - 10.1 MG/DL 04/30/2023 9:57 AM [facility] ANION GAP 6.4 5 - 15 MMOL/L 04/30/2023 9:57 AM [facility] BUN CREATININE RATIO 20.7 6 - 26 04/30/2023 9:57 AM [facility] GFR ESTIMATE 86(L) >90 ML/MIN/1.7 3 M2 04/30/2023 9:57 AM [facility] Comment: NOTE: eGFR is not calculated for patients <18 years of age. This is an estimated GFR calculation using the new CKD EPI creatinine equation without race and so does not require a correction factor for race. This estimated GFR should not be used for calculating drug doses. 04/30/2023 8:48 AM CLINICAL OUTCOMES MANAGER Tommy Card MD LABORATORY Final Result [facility] [address] [place] [address], [place] [phone] * CBC W/DIFF AUTOMATED (04/30/2023 8:48 AM CLINICAL OUTCOMES MANAGER) WBC 8.1 4.5 - 11.0 x10'3/uL 04/30/2023 8:58 AM CLINICAL OUTCOMES MANAGER [facility] RBC 4.74 4.70 - 6.10 x10'6/uL 04/30/2023 8:58 AM [facility] HGB 14.6 14.0 - 18.0 G/DL 04/30/2023 8:58 AM [facility] HCT 43.8 43.0 - 54.0 % 04/30/2023 8:58 AM [facility] MCV 92.4 80.0 - 94.0 FL 04/30/2023 8:58 AM [facility] MCH 30.8 27.0 - 31.0 PG 04/30/2023 8:58 AM [facility] MCHC 33.3 32.0 - 36.0 G/DL 04/30/2023 8:58 AM [facility] RDW 12.9 11.5 - 14.5 % 04/30/2023 8:58 AM [facility] PLT 227 130 - 400 x10'3/uL 04/30/2023 8:58 AM [facility] MPV 9.8 9.3 - 12.2 FL 04/30/2023 8:58 AM [facility] DIFFERENTIAL TYPE AUTOMATED DIFFERENTIAL 04/30/2023 8:58 AM [facility] NEUTROPHILS % 61.7 % 04/30/2023 8:58 AM [facility] LYMPHOCYTES % 24.7 % 04/30/2023 8:58 AM [facility] MONOCYTES % 5.9 % 04/30/2023 8:58 AM [facility] EOSINOPHILS 5.7 % 04/30/2023 8:58 AM [facility] BASOPHILS 1.0 % 04/30/2023 8:58 AM [facility] IMMATURE GRANS % 1.0 % 02/22/20 24 8:58 AM CLINICAL OUTCOMES MANAGER [facility] ABS. NEUTROPHILS TOTAL 5.00 1.80 - 7.70 x10'3/uL 04/30/2023 8:58 AM CLINICAL OUTCOMES MANAGER [facility] ABS. LYMPHOCYTES 2.00 1.00 - 4.80 x10'3/uL 04/30/2023 8:58 AM CLINICAL OUTCOMES MANAGER [facility] ABS. MONOCYTES 0.48 0.30 - 0.82 x10'3/uL 04/30/2023 8:58 AM CLINICAL OUTCOMES MANAGER [facility] ABS. EOSINOPHILS 0.46 0.04 - 0.54 x10'3/uL 04/30/2023 8:58 AM CLINICAL OUTCOMES MANAGER [facility] ABS. BASOPHILS 0.08 0.01 - 0.08 x10'3/uL 04/30/2023 8:58 AM CLINICAL OUTCOMES MANAGER [facility] ABS. IMMATURE GRANULOCYTES 0.08 0.00 - 0.49 x10'3/uL 04/30/2023 8:58 AM [facility] 04/30/2023 8:48 AM CLINICAL OUTCOMES MANAGER Tommy Card MD LABORATORY Final Result [facility] [address] [place] [address], documented in this encounter Visit Diagnoses Diagnosis Enlarged prostate with lower urinary tract symptoms (LUTS)- Primary Hypertrophy of prostate with urinary obstruction and other lower urinary tract symptoms (LUTS) Increased frequency of micturition Urinary frequency PSA elevation Elevated prostate specific antigen (PSA) documented in this encounter Care Teams Package Car Driver Relationship Specialty Start Date End Date Kings Tolentino MD [address] [place] [address] PCP - General FAMILY PRACTICE 04/30/23 documented as of this encounter
[2024-11-21 08:30] LABS: Hematocrit 42.7 % (42.0-52.0); Hemoglobin 14.3 g/dL (14.0-18.0); Immature Granulocyte Percent A 0.8 % (0-0.5); Lymphocytes Absolute Auto 1.60 K/mm3 (0.9-3.2); Mean Corpuscular HGB Conc 33.5 g/dl (32-36); Mean Corpuscular Hemoglobin 30.4 pg (26-34); Mean Corpuscular Volume 90.9 fl (80-100); Nucleated Red Blood Cells Absolute Auto 0.000 K/mm3 (0.0-0.012); Nucleated Red Blood Cells Perc 0.0 % (0.0-0.2); Platelet Count Result 236 k/mm3 (150-375); Red Blood Count 4.70 M/mm3 (4.6-6.20); White Blood Count 7.8 K/mm3 (4.5-10.0)
[2024-11-21 08:52] LABS: Alanine Aminotransferase 20 U/L (6-50); Albumin Level 3.9 g/dL (3.5-5.1); Alkaline Phosphatase 53 U/L (38-126); Anion Gap 5 mmol/L (4-12); Aspartate Amino Transferase 26 U/L (17-59); Bilirubin,Total 0.4 mg/dL (0.2-1.3); Blood Urea Nitrogen 16 mg/dL (9-20); Calcium 8.8 mg/dL (8.4-10.2); Carbon Dioxide 28 mmol/L (22-30); Chloride 104 mmol/L (98-107); Cholesterol 186 mg/dL (0-200); Estimated Glomerular Filt Rate > 60; Glucose 98 mg/dL (65-110); HDL Direct 39 mg/dL; Potassium 3.7 mmol/L (3.4-5.0); Sodium 137 mmol/L (137-145); Total Protein 6.7 g/dL (6.3-8.2); Triglycerides 77 mg/dL (<150)
[2024-11-21 08:57] LABS: Hemoglobin A1C 5.4 % (<5.7)
[2024-11-21 09:28] LABS: Thyroid Stimulating Hormone 1.210 uIU/mL (0.465-4.680)
== END 2024-11-21 07:53 | disposition home or self-care (01) ==
PROVIDERS: Nurse Practitioner Family; PCP Family Medicine; Visit Provider Nurse Practitioner Adult Health
DX: E78.00 Pure hypercholesterolemia, unspecified (principal); I10 Essential (primary) hypertension; E78.5 Hyperlipidemia, unspecified; Z13.29 Encounter for screening for other suspected endocrine disorder; E55.9 Vitamin D deficiency, unspecified; R73.03 Prediabetes
CPT/HCPCS: 36415; 80053; 80061; 82306; 83036; 84443; 85025

== ENCOUNTER 2025-01-05 02:17 | Day surgery (SDC) | payer MEDICARE, OTHER, SELFPAY ==
--- OUTSIDE RECORDS SUMMARY | 2004-06-10 09:00 | XMS_ITS | Continuity of Care Document ---
Author Organization [facility] Address [address] [place] [address] [place] [address] Phone Care Team Providers Care Fly Fishing Guide Name Role Phone Tin Abel Unavailable Unavailable Advance Directives Directive Yes / No Effective Date File Name No Information Encounters Encounter Description Practice Location Reason(s) For Visit Diagnoses Date Provider Providers Copied on Encounter [facility], [id number] [place] [address] [address], [place], [place], [id number], [place] tel:[phone] [facility] No Information Page Castle. [address] [place], [place], [facility], [place]. tel:[phone] Referring Provider: Mai Cardoso, [facility], [place], [facility]. tel:[phone] Family History Family Member Type Diagnosis Age At Onset No Information Payers Payer name Insurance type Covered republican ID Authoriza tiarnol(s) [employer] SOI CI [id number] Social History Type Description Quantity Date Captured [...]
[2024-12-26 10:58] VITALS: BMI 31.1
--- OUTSIDE RECORDS SUMMARY | 2025-01-05 02:19 | XMS_ITS | Encounter Summary ---
Author Organization [facility] Address [address] [place] [id number] Care Team Providers Care Brim And Crown Presser Name Role Phone Kings Tolentino MD Primary Care Provider [phone] Encounter Details Date Type Department Care Team (Late st Contact Info) Description 05/04/2023 Prep for Procedure [facility] Pre-Admission Testing [address] [place] [id number] Tommy Card MD 3 [facility] [place], [place] [id number] Social History Tobacco Use Types Packs/Day Years Used Date Smoking Tobacco: Never Smokeless Tobacco: Never Alcohol Use Standard Drinks/Week Comments Yes 0 (1 standard drink = 0.6 oz pure alcohol) occasional. special occasions or out for basketball game Sex and Gender Information Value Date Recorded Sex Assigned at Not on file Legal Sex Male 3:08 PM LAUNCH MANAGER Gender Identity Not on file Sexual Orientation Not on file documented as of this encounter Functional Status * Calculated C-SSRS Risk Score (Lifetime/Recent) Answer Date of Assessment Author Status No Risk Indicated 05/04/2023 10:45 AM Sandeep Islas RN Active * [place] Suicide Severity Rating Scale (Screener/Recent Self-Report) Question Answer Date of Assessment Author Status 1. Wish to be (Past 1 Month) No 05/04/2023 10:45 AM Eboni Islas RN A ctive 2. Non-Specific Active Suicidal Thoughts (Past 1 Month) No 05/04/2023 10:45 AM LAUNCH MANAGER Eboni Ramsay RN A ctive 6. Suicidal Behavior (Lifetime) No 05/04/2023 10:45 AM LAUNCH MANAGER Eboni Ramsay RN A ctive documented as of this encounter Plan of Treatment Not on file documented as of this encounter Results * TYPE & SCREEN (04/30/2023 8:48 AM LAUNCH MANAGER) ABO/RH A POSITIVE 04/30/2023 9:[address] [facility] ANTIBODY SCREEN NEGATIVE 04/30/2023 9:51 AM [facility] SAMPLE EXPIRATION 05/07/2023,2 359 05/04/2023 11:22 AM [facility] BB COMMENT NO HISTORY OF TRANSFUSIONS , OR ANTIBODIES, NEW SPECIMEN NOT NEEDED 05/04/2023 11:22 AM [facility] 04/30/2023 8:48 AM LAUNCH MANAGER Tommy Card MD BLOOD BANK TEST ORDERABLES Final Result [facility] [address] [place] [address], * (ABNORMAL) BASIC METABOLIC PANEL (04/30/2023 8:48 AM LAUNCH MANAGER) GLUCOSE 137(H) 70 - 99 MG/DL 04/30/2023 9:[address] [facility] BUN 20(H) 7 - 18 MG/DL 04/30/2023 9:57 AM [facility] CREATININE S/P/B 0.97 0.7 - 1.3 MG/DL 04/30/2023 9:57 AM [facility] SODIUM S/P/B 142 136 - 145 MMOL/L 04/30/2023 9:[address] [facility] POTASSIUM S/P/B 3.5 3.5 - 5.1 MMOL/L 04/30/2023 9:[address] [facility] CHLORIDE S/P/B 108 100 - 108 MMOL/L 04/30/2023 9:57 AM [facility] CO2 27.6 21 - 32 MMOL/L 04/30/2023 9:57 AM [facility] CALCIUM S/P/B 8.9 8.5 - 10.1 MG/DL 04/30/2023 9:57 AM [facility] ANION GAP 6.4 5 - 15 MMOL/L 04/30/2023 9:57 AM [facility] BUN CREATININE RATIO 20.7 6 - 26 04/30/2023 9:57 AM [facility] GFR ESTIMATE 86(L) >90 ML/MIN/1.7 3 M2 04/30/2023 9:57 AM [facility] Comment: NOTE: eGFR is not calculated for patients <18 years of age. This is an estimated GFR calculation using the new CKD EPI creatinine equation without race and so does not require a correction factor for race. This estimated GFR should not be used for calculating drug doses. 04/30/2023 8:48 AM LAUNCH MANAGER Tommy Card MD LABORATORY Final Result [facility] [address] [place] [address], [place] [phone] * CBC W/DIFF AUTOMATED (04/30/2023 8:48 AM LAUNCH MANAGER) WBC 8.1 4.5 - 11.0 x10'3/uL 04/30/2023 8:[address] [facility] RBC 4.74 4.70 - 6.10 x10'6/uL 04/30/2023 8:58 AM [facility] HGB 14.6 14.0 - 18.0 G/DL 04/30/2023 8:58 AM [facility] HCT 43.8 43.0 - 54.0 % 04/30/2023 8:58 AM [facility] MCV 92.4 80.0 - 94.0 FL 04/30/2023 8:58 AM [facility] MCH 30.8 27.0 - 31.0 PG 04/30/2023 8:58 AM [facility] MCHC 33.3 32.0 - 36.0 G/DL 04/30/2023 8:58 AM [facility] RDW 12.9 11.5 - 14.5 % 04/30/2023 8:58 AM [facility] PLT 227 130 - 400 x10'3/uL 04/30/2023 8:58 AM [facility] MPV 9.8 9.3 - 12.2 FL 04/30/2023 8:58 AM [facility] DIFFERENTIAL TYPE AUTOMATED DIFFERENTIAL 04/30/2023 8:58 AM [facility] NEUTROPHILS % 61.7 % 04/30/2023 8:58 AM [facility] LYMPHOCYTES % 24.7 % 04/30/2023 8:58 AM [facility] MONOCYTES % 5.9 % 04/30/2023 8:58 AM [facility] EOSINOPHILS 5.7 % 04/30/2023 8:58 AM [facility] BASOPHILS 1.0 % 04/30/2023 8:58 AM [facility] IMMATURE GRANS % 1.0 % 02/22/20 24 8:[address] [facility] ABS. NEUTROPHILS TOTAL 5.00 1.80 - 7.70 x10'3/uL 04/30/2023 8:[address] [facility] ABS. LYMPHOCYTES 2.00 1.00 - 4.80 x10'3/uL 04/30/2023 8:[address] [facility] ABS. MONOCYTES 0.48 0.30 - 0.82 x10'3/uL 04/30/2023 8:[address] [facility] ABS. EOSINOPHILS 0.46 0.04 - 0.54 x10'3/uL 04/30/2023 8:[address] [facility] ABS. BASOPHILS 0.08 0.01 - 0.08 x10'3/uL 04/30/2023 8:[address] [facility] ABS. IMMATURE GRANULOCYTES 0.08 0.00 - 0.49 x10'3/uL 04/30/2023 8:58 AM [facility] 04/30/2023 8:48 AM LAUNCH MANAGER Tommy Card MD LABORATORY Final Result [facility] [address] [place] [address], documented in this encounter Visit Diagnoses Diagnosis Enlarged prostate with lower urinary tract symptoms (LUTS)- Primary Hypertrophy of prostate with urinary obstruction and other lower urinary tract symptoms (LUTS) Increased frequency of micturition Urinary frequency PSA elevation Elevated prostate specific antigen (PSA) documented in this encounter Care Teams Brim And Crown Presser Relationship Specialty Start Date End Date Kings Tolentino MD [address] [place] [address] PCP - General FAMILY PRACTICE 04/30/23 documented as of this encounter
--- OUTSIDE RECORDS SUMMARY | 2025-01-05 02:19 | XMS_ITS | Clinical Summary ---
Author Organization [facility] Address [address] [address] [place] [address] Care Team Providers Care Pediatric Physiatrist Name Role Phone Jean Shahid MD Primary Care Provider [phone] Allergies Active Allergy Reactions Criticality Noted Date [...] on file Legal Sex Male 12:54 AM PATIENT ACCOUNT ANALYST Gender Identity Not on file Sexual Orientation Not on file Obstetrics History Last Filed Vital Signs Vital Sign Reading Time Taken Comments Blood Pressure 130/80 03/31/2016 2:42 PM PATIENT ACCOUNT ANALYST Pulse 58 03/31/2016 2:42 PM PATIENT ACCOUNT ANALYST Temperature 36.6 C (97.9 F) 03/03/2013 2:54 PM PATIENT ACCOUNT ANALYST Respiratory Rate - - Oxygen Saturation 96% 03/03/2013 2:54 PM PATIENT ACCOUNT ANALYST Inhaled Oxygen Concentration - - Weight 95.3 kg (210 lb 0.2 oz) 03/31/2016 2:42 P M PATIENT ACCOUNT ANALYST Height 172.7 cm (5' 8) 03/31/2016 2:42 PM PATIENT ACCOUNT ANALYST Body Mass Index 31.93 03/31/2016 2:42 PM PATIENT ACCOUNT ANALYST Plan of Treatment Not on file Insurance [facility] CLAIMS Care Teams Pediatric Physiatrist Relationship Specialty Start Date End Date Jean Shahid MD [address] [facility] [address] [place] [address] PCP - General Internal Medicine 04/27/18
--- OUTSIDE RECORDS SUMMARY | 2025-01-05 02:19 | XMS_ITS | Clinical Summary ---
Author Organization [facility] Address [facility] [place] [address] Care Team Providers Care Animal Biologist Name Role Phone Kings Tolentino MD Primary Care Provider [phone] Allergies Active Allergy Reactions Criticality Noted Date Comments Amoxicillin Rash Low 04/27/2023 Morphine Rash Low 04/27/2023 Penicillin V Rash Low 04/27/2023 Penicillins Rash Low 04/27/2023 Shellfish Protein-Containing Drug Products Vomiting 04/27/2023 Medications rosuvastatin (CRESTOR) 20 MG tablet Take [...] on file Legal Sex Male 3:08 PM HOBBING PRESS OPERATOR Gender Identity Not on file Sexual Orientation Not on file Last Filed Vital Signs Vital Sign Reading Time Taken Comments Blood Pressure 148/88 05/04/2023 2:10 PM HOBBING PRESS OPERATOR Pulse 58 05/04/2023 2:10 PM HOBBING PRESS OPERATOR Temperature 36.4 C (97.5 F) 05/04/2023 2:10 PM HOBBING PRESS OPERATOR Respiratory Rate 16 05/04/2023 2:10 PM HOBBING PRESS OPERATOR Oxygen Saturation 98% 05/04/2023 2:10 PM HOBBING PRESS OPERATOR Inhaled Oxygen Concentration - - Weight 101.5 kg (223 lb 12.3 oz) 2023 10:35 AM HOBBING PRESS OPERATOR Height 172.7 cm (5' 8) 05/04/2023 10:3 5 AM HOBBING PRESS OPERATOR Body Mass Index 34.02 05/04/2023 10:35 AM HOBBING PRESS OPERATOR Plan of Treatment Health Maintenance Due Date Last Done Comments Colorectal Cancer Screening Colonoscopy (10 Years) 1955 Hepatitis C 10/06/1973 Zoster Vaccines (2 of 2) 06/23/2017 04/28/2017 Annual Medicare Wellness Visit 10/06/2020 COVID-19 Vaccine ( season) 2024 03/03/2022, 07/17/2021, 12/21/2020, Additional history exists Influenza Adult (#1) 2024 04/28/2017, 03/30/2012, 01/26/1998, Additional history exists DTaP, Tdap and Td Vaccines (3 - Td or Tdap) 04/28/2027 04/28/2017, 2002, 01/06/1997 RSV Immunization or 60+ Years (1 - 1-dose 75+ series) 10/06/2030 Hepatitis A Vaccines Aged Out 01/26/1998, 01/06/19 97 No longer eligible based on patient's age to complete this topic Pneumococcal Vaccine: 50+ Years Completed 06/03/2021 Meningococcal B Vaccine Aged Out No l onger eligible based on patient's age to complete this topic Meningococcal Vaccine Aged Out No tyrone fito eligible based on patient's age to complete this topic RSV Immunizations Under 20 Months Aged Out No longer eligible based on patient's age to complete this topic Insurance MEDICARE [facility] Care Teams Animal Biologist Relationship Specialty Start Date End Date Kings Tolentino MD [address] [place] [address] PCP - General FAMILY PRACTICE 04/30/23
[2025-01-05 11:16] VITALS: BP 150/82; PULSE 55; RESP 18; TEMP 36.8; O2SAT 99
[2025-01-05] MEDS: LACTATED RINGERS 1,000 ML 150 ML IV CONT (11:18)
--- NOTE | 2025-01-05 11:32 | WPDANESEPPF ---
Anes - Initial Pre Proc Eval Procedure: Operation Date: 01/05/25 12:30 Proposed Procedures p Screening Colonoscopy - Fabio Benavidez MD Date/Time: 01/05/25 11:32 Surgeon: Fabio Benavidez MD Pre Op Diagnosis: Screening Patient Data Age: 69 Gender: M Height: 1.73 m Weight: 94.3 kg Last Vital Signs Temp 98.2 F 01/05/25 11:16 Pulse 55 L 01/05/25 11:16 Resp 18 01/05/25 11:16 BP 150/82 H 01/05/25 11:16 Pulse Ox 99 01/05/25 11:16 O2 Del Method Room Air 01/05/25 11:16 Allergies Allergy/AdvReac Type Severity Reaction Status Date / Time morphine Allergy Intermediate Itching/ALEXA Verified 01/05/25 11:15 H Penicillins Allergy Intermediate RASH/ITCHIN Verified 01/05/25 11:15 G Home Medications ?Medication ?Instructions ?Recorded ?Confirmed ?Type ibuprofen 800 mg tablet 800 mg PO TID PRN Pain 08/19/21 12/26/24 History sildenafil 100 mg tablet (Viagra) 100 mg PO DAILY PRN sexual 11/17/23 12/26/24 Rx activity #30 tabs liraglutide (weight loss) 3 mg/0.5 See Rx Instructions subcut 11/22/24 12/26/24 Rx mL (18 mg/3 mL) subcut pen .COMPLEX #15 mL injector (Saxenda) Patient hx anesthesia problems: none Family hx anesthesia problems: none Results Review: All pre-operative results and documents have been reviewed as part of the pre-operative evaluation. [facility], [facility] Past Medical History Medical History Weight gain Elevated PSA Erectile dysfunction Effusion, right knee Right knee pain Medial meniscus tear Pure hypercholesterolemia Surgical History Surgical History Status post total left knee replacement Family History Family History Father Patient's father is in good health Sibling Patient's brother is in good health Mother Family history of diabetes mellitus in first degree relative Diabetes mellitus Asthma Family history of pancreatic cancer Grandparent Carcinoma of colon Social History Social History Smoking status: Never smoker Second hand tobacco smoke exposure: Yes Alcohol intake: current Drinks per week: 6 Substance use: never Substance use type: does not use Do You Feel Safe in your Home?: Yes Lack of Transportation: No Lack of Food: Never True Current Housing: I Have Housing Concerned About Future Housing: No Difficulty Paying Gas/Electric Bills: No Difficulty Paying for Meds: No Currently Unemployed: No Education: Bachelor's Degree Difficulty w/ Childcare or Family Care: No Living arrangements: with family Additional living arrangements comments: SPOUSE Occupation/Education: occupation 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 BMI 31, anxiety. Active, walks 1-2 fos, no cp or sob. Informed Consent: The patient's anesthetic plan and its attendant risks and benefits were discussed with the patient/family/POA. Questions were solicited and answers provided to the satisfaction of the patient/family/POA.
--- NOTE | 2025-01-05 12:22 | P.HP_ITS ---
History of Present Illness History of Present Illness Consent: Risks, benefits, and alternatives have been discussed and questions answered. Patient agrees to proceed with procedure. Chief complaint: Screening Narrative: Jaron Nicholson is a 69 year old male with colon polyp in 2020 Review of Systems Review of Systems: All systems reviewed & are unremarkable except as noted in HPI and below PMFSH Past Medical History Medical History (Updated 01/05/25 @ 12:24 by Fabio Benavidez MD) Colon polyp Weight gain Elevated PSA Erectile dysfunction Effusion, right knee Right knee pain Medial meniscus tear Pure hypercholesterolemia Surgical History Surgical History Status post total left knee replacement Family History Family History Father Patient's father is in good health Sibling Patient's brother is in good health Mother Family history of diabetes mellitus in first degree relative Diabetes mellitus Asthma Family history of pancreatic cancer Grandparent Carcinoma of colon Social History Social History Smoking status: Never smoker Second hand tobacco smoke exposure: Yes Alcohol intake: current Drinks per week: 6 Substance use: never Substance use type: does not use Do You Feel Safe in your Home?: Yes Lack of Transportation: No Lack of Food: Never True Current Housing: I Have Housing Concerned About Future Housing: No Difficulty Paying Gas/Electric Bills: No Difficulty Paying for Meds: No Currently Unemployed: No Education: Bachelor's Degree Difficulty w/ Childcare or Family Care: No Living arrangements: with family Additional living arrangements comments: SPOUSE Occupation/Education: occupation 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 Gender identity (if verbalized by the patient): Male Spiritual care concerns: No Meds Home Medications and Allergies Home Medications ?Medication ?Instructions ?Recorded ?Confirmed ?Type ibuprofen 800 mg tablet 800 mg PO TID PRN Pain 08/1912/26/24 History sildenafil 100 mg tablet (Viagra) 100 mg PO DAILY PRN sexual 11/17/23 12/26/24 Rx activity #30 tabs liraglutide (weight loss) 3 mg/0.5 See Rx Instructions subcut 11/22/24 12/26/24 Rx mL (18 mg/3 mL) subcut pen .COMPLEX #15 mL injector (Saxlinkedü) Allergies Allergy/AdvReac Type Severity Reaction Status Date / Time morphine Allergy Intermediate Itching/ALEXA Verified 01/05/25 11:15 H Penicillins Allergy Intermediate RASH/ITCHIN Verified 01/05/25 11:15 G Vital Signs Vital Signs - 24 hr 01/05/25 11:16 Temperature 98.2 F Pulse Rate 55 L Respiratory Rate 18 Blood Pressure 150/82 H Pulse Oximetry 99 Oxygen Delivery Room Air Exam Const: General: comfortable and no acute distress HENMT: Face/Nose/Sinus: Normal nares present Eyes: General: appearance normal, both eyes and all related structures Neck: Neck: no JVD Resp: Auscultation: clear to auscultation bilaterally Cardio: Rate: regular rate Rhythm: regular rhythm GI: Inspection: non-distended GI Palp: Yes Soft to palpation Skin: General skin exam: normal color Extrem: General: normal to inspection Psych: Mental Status: mental status grossly normal Assessment and Plan Assessment and plan (1) Colon polyp: Code(s): K63.5 - Polyp of colon Status: Acute Assessment and Plan: colonoscopy
--- NOTE | 2025-01-05 12:36 | S_PTH ---
PATIENT: Jaron Nicholson LOC: [facility]#:[id number] AGE/SX: 69/M ROOM: RE01/05/[address]: Fabio Benavidez MD : 1955 BED: DIS: 01/05/2025 SPEC #: [id number] RECD: 01/05/25 13:05 STATUS: TRISTIN REUnique #: [id number] KATHY: 01/05/25 12:[address]: Fabio Benavidez DEPT: [facility] Surgical RECD BY: Dalia Thayer ENTERED: 01/05/25 13:05 SP TYPE: Surgical OTHR DR: Kings Tolentino MD Tissues: A - Colon Polypectomy Procedures: Hematoxylin and Eosin Stain Gross and Microscopic Level 4
[2025-01-05 12:37] VITALS: BP 120/67; PULSE 59; RESP 18; O2SAT 97
[2025-01-05 12:47] VITALS: BP 129/92; PULSE 54; RESP 19; O2SAT 98
[2025-01-05 12:57] VITALS: BP 133/73; PULSE 59; RESP 18; O2SAT 97
== END 2025-01-05 13:15 | disposition home or self-care (01) ==
PROVIDERS: PCP Family Medicine; Referring Provider Nurse Practitioner Adult Health; Visit Provider Internal Medicine Gastroenterology
PROC: 0DJD8ZZ Inspection of Lower Intestinal Tract, Via Natural or Artificial Opening Endoscopic (ICD-10-PCS; CPT 45378; principal; 2025-01-05 12:30)
DX: Z12.11 Encounter for screening for malignant neoplasm of colon (principal); D12.5 Benign neoplasm of sigmoid colon; K64.8 Other hemorrhoids; E66.9 Obesity, unspecified; Z68.31 Body mass index [BMI] 31.0-31.9, adult
CPT/HCPCS: 45385; 88305; J2704; J7120